=== PATIENT | female | born 1940 | race Caucasian/White ===

== ENCOUNTER → 2018-05-02 14:28 | Outpatient (BNVA) | payer MEDICARE, OTHER, SELFPAY | PROVIDERS: Visit Provider Urology | DX: N39.46 Mixed incontinence (principal) | CPT/HCPCS: 99213 ==

== ENCOUNTER 2018-07-08 10:44 | Outpatient (CLI) | payer MEDICARE, OTHER, SELFPAY ==
--- NOTE | 2018-07-08 10:42 | DI.RAD_ITS ---
SYMPTOM/DIAGNOSIS: R/O DJD LEFT KNEE LEFT KNEE: Two views. Comparison 06/23/14 There are again seen post surgical changes of a left total knee replacement. No evidence of hardware failure is seen. The bones are intact. The soft tissues are unremarkable. IMPRESSION: Stable left TKR.
== END 2018-07-08 11:04 ==
PROVIDERS: PCP Nurse Practitioner; Visit Provider Orthopaedic Surgery
DX: Z96.652 Presence of left artificial knee joint (principal); M79.652 Pain in left thigh
CPT/HCPCS: 99211; 99213; 73560

== ENCOUNTER 2018-07-08 14:03 | Outpatient (CLI) | payer MEDICARE, OTHER, SELFPAY | END 2018-07-08 14:23 | PROVIDERS: PCP Nurse Practitioner; Referring Provider Nurse Practitioner; Visit Provider Orthopaedic Surgery | DX: M79.652 Pain in left thigh (principal); Z96.642 Presence of left artificial hip joint | CPT/HCPCS: 99211 ==

== ENCOUNTER 2018-10-10 10:12 | Outpatient (CLI) | payer MEDICARE, OTHER, SELFPAY ==
[2018-10-10 12:20] LABS: ALT 27 U/L (12-78); AST 21 U/L (15-37); Albumin 3.3 g/dL (3.4-5.0); Alkaline Phosphatase 94 U/L (46-116); Anion Gap 7.5 mmol/L (3-11); BUN 16 mg/dL (7-18); Bilirubin, Total 0.5 mg/dL (0.2-1.0); CO2 32.5 mmol/L (21.0-32.0); CREATININE 0.64 mg/dL (0.55-1.02); Calcium 9.1 mg/dL (8.5-10.1); Chloride 104 mmol/L (98-107); Cholesterol 156 mg/dL (50-200); Glucose 100 mg/dL (70-100); HDL Cholesterol 52 mg/dL (40-60); LDL CHOLESTEROL 89 mg/dL (<100); Potassium 4.1 mmol/L (3.5-5.1); Sodium 144 mmol/L (136-145); Total Protein 6.6 g/dL (6.4-8.2); Triglyceride 74 mg/dL (30-150)
== END 2018-10-10 10:32 ==
PROVIDERS: PCP Nurse Practitioner; Visit Provider Nurse Practitioner
DX: I10 Essential (primary) hypertension (principal); E66.9 Obesity, unspecified
CPT/HCPCS: 36415; 80053; 80061; 83721; 84443

== ENCOUNTER → 2019-05-01 12:57 | Outpatient (BNVA) | payer MEDICARE, OTHER, SELFPAY | PROVIDERS: PCP Nurse Practitioner; Referring Provider Nurse Practitioner; Visit Provider Urology | DX: N39.46 Mixed incontinence (principal) | CPT/HCPCS: 99213 ==

== ENCOUNTER 2019-09-23 03:22 | Outpatient (CLI) | payer MEDICARE, OTHER, SELFPAY ==
[2019-09-23 09:43] LABS: Hemoglobin A1C 5.7 % (3.8-5.6)
[2019-09-23 10:15] LABS: ALT 23 U/L (14-59); AST 17 U/L (15-37); Albumin 3.4 g/dL (3.4-5.0); Alkaline Phosphatase 85 U/L (46-116); Anion Gap 7.7 mmol/L (3-11); BUN 16 mg/dL (7-18); Bilirubin, Total 0.6 mg/dL (0.2-1.0); CO2 30.3 mmol/L (21.0-32.0); CREATININE 0.62 mg/dL (0.55-1.02); Calculated LDL 97 mg/dL (<100); Chloride 104 mmol/L (98-107); Cholesterol 170 mg/dL (<200); Glucose 104 mg/dL (74-106); HDL Cholesterol 48 mg/dL (40-60); Sodium 142 mmol/L (136-145); Total Protein 6.5 g/dL (6.4-8.2); Triglyceride 126 mg/dL (<150)
== END 2019-09-23 03:42 ==
PROVIDERS: PCP Nurse Practitioner; Visit Provider Nurse Practitioner
DX: I10 Essential (primary) hypertension (principal); R73.01 Impaired fasting glucose; E66.9 Obesity, unspecified
CPT/HCPCS: 36415; 80053; 80061; 83036

== ENCOUNTER 2019-09-29 02:02 | Outpatient (CLI) | payer MEDICARE, OTHER, SELFPAY ==
--- NOTE | 2019-09-29 14:45 | DI.US_ITS ---
EXAM: US CAROTID CLINICAL HISTORY: intermittent blurred vision H53.8 VISULA DISTIURBANCE, R07.9 CHEST PAIN TECHNIQUE: Ultrasound performed using standard protocol. COMPARISON: PELVIS TRANSVAG from 11/26/2016 FINDINGS: Bilateral duplex carotid ultrasound was performed. There is bilateral antegrade vertebral flow. The re is mild atheromatous plaque formation in the proximal right internal carotid artery. There is nor mal flow velocity in common, internal, and external carotid arteries bilaterally. IMPRESSION: No evidence of a hemodynamically significant carotid stenosis. DATA REPOSITORY:
== END 2019-09-29 02:22 ==
PROVIDERS: PCP Nurse Practitioner; Visit Provider Nurse Practitioner
DX: H53.8 Other visual disturbances (principal); R07.9 Chest pain, unspecified
CPT/HCPCS: 93880

== ENCOUNTER 2019-10-12 00:45 | Outpatient (CLI) | payer MEDICARE, OTHER, SELFPAY ==
--- NOTE | 2019-10-12 07:10 | DI.CT_ITS ---
EXAM: CT HEAD WO CLINICAL HISTORY: Blurred vision intermittent,h53.8. TECHNIQUE: Imaging Protocol: Axial computed tomography images with coronal and sagittal reformatted images were created and reviewed COMPARISON: No exams were available for comparison FINDINGS: Ventricles and Extra axial spaces: Ventricles and sulci are consistent with the patient's age. Hemorrhage: None. Cerebral parenchyma: There are areas of decreased attenuation in the white matter consistent with sma ll vessel ischemic disease. No acute territorial infarct is present. Midline shift: None. Brainstem/Cerebellum: Normal. Calvarium: Normal. Visualized Paranasal sinuses/Mastoids: There is complete opacification of the right maxillary sinus w ith high density material. This may represent inspissated secretions or atypical infection. There i s mucosal thickening in the left maxillary sinus. There is opacification of a few ethmoid air cells. Mastoid air cells are well pneumatized. IMPRESSION: 1. No acute intracranial process. 2. Nasal sinus disease. High density material is seen in the right maxillary sinus. This may repres ent inspissated secretions or atypical infection. RADIATION DOSE DELIVERED: DATA REPOSITORY: All CT scans at this facility are submitted to the National Radiology Data Registry (NRDR) Dose Index Registry (DIR) with the [employer] (ACR). RADIATION OPTIMIZATION: All CT scans at this facility use at least one of these dose optimization te chniques: automated exposure control; mA and/or kV adjustment per patient size (includes targeted exa ms where dose is matched to clinical indication); or iterative reconstruction.
== END 2019-10-12 01:05 ==
PROVIDERS: PCP Nurse Practitioner; Visit Provider Nurse Practitioner
DX: H53.8 Other visual disturbances (principal); J32.0 Chronic maxillary sinusitis
CPT/HCPCS: 70450

== ENCOUNTER 2019-10-14 01:42 | Outpatient (CLI) | payer MEDICARE, OTHER, SELFPAY ==
--- NOTE | 2019-10-14 13:04 | DI.US_ITS ---
APPROVED REPORT EXAM: Comprehensive 2D, Doppler, and color-flow Echocardiogram Patient Location: Out-Patient Student Accounts Coordinator: Harriett Holder RDCS (AE) Indications: Chest pain Conclusion Left Ventricle : The left ventricle is normal size. Left ventricular systolic function is normal. Th ere is normal left ventricular wall thickness. There is normal LV segmental wall motion. There is gr tim 2 diastolic dysfunction with impaired relaxation. LVEF is 55-59%. Right Ventricle : The right ventricle is normal size. The right ventricular systolic function is norm al. Atria : The left atrium size is normal. The right atrium size is normal. Aortic Valve : The aortic valve is not well visualized. Aortic valve is calcified. The aortic valve gradient is minimally increased (9 mmHg) No aortic regurgitation is seen. Mitral Valve : Moderate mitral annular calcification. Mild mitral regurgitation. No evidence of natasha l valve stenosis. Great Vessels : The IVC was not well visualized. There is no prior echocardiogram available for comparison. Wall motion Left Ventricle The left ventricle is normal size. Left ventricular systolic function is normal. There is normal left ventricular wall thickness. There is normal LV segmental wall motion. There is grade 2 diastolic dys function with impaired filling. LVEF is 55-59%. Right Ventricle The right ventricle is normal size. The right ventricular systolic function is normal. Atria The left atrium size is normal. The right atrium size is normal. Aortic Valve The aortic valve is not well visualized. Aortic valve is calcified. The aortic valve gradient is mini janki increased (9 mmHg) No aortic regurgitation is present. Mitral Valve Moderate mitral annular calcification. No evidence of mitral valve stenosis. Mild mitral regurgitatio n. Tricuspid Valve The tricuspid valve is normal in structure. There is no tricuspid valve stenosis. Trace tricuspid reg urgitation. Pulmonic Valve Pulmonic valve is not well visualized. There is no pulmonic valvular stenosis. Trace pulmonic regurgi tation. Great Vessels The aortic root is normal in size. The ascending aorta size is mildly dilated. The IVC was not well v isualized. Pericardium There is no pericardial effusion. 2D Dimensions IVSD d PLAX 0.93 cm F: 0.6-1.0 LV Vol A2C d MOD 79.1 mL LVPW d PLAX 0.87 cm F: 0.6 - 1.0 LV Vol A4C d MOD 92.3 mL LVID d PLAX 4.49 cm F: 3.8 - 5.2 LA vol/ BSA A2C s A-L 26.6 mL/m2 LVDs 3.30 cm F: 2.2 - 3.5 LA vol/ BSA A4C s A-L 29.9 mL/m2 Ao Root d 2.88 cm F: 2.7 - 3.3 LA Vol/ BSA Biplane s A-L 29.1 mL/m2 RA Area A4C 14.43 cm2 LA Area A4C s MOD 20.43 cm2 RA Vol/ BSA A4C s A-L 18.8 mL/m2 LA Area A2C s MOD 18.70 cm2 Ao Asc Diam d 3.39 cm F: 2.3 - 3.1 LV EF A4C MOD 55.4 % LV EF Teichholz 52.1 % LV EF A2C MOD 59.0 % LVEF (Huddleston's) 57.49 % F: 54 - 74 LV EF Biplane MOD 57.5 % LV Volume 63.96 mL F: 46 - 106 LV Volume Index 30.60 mL/m2 F: 29 - 61 LV Vol Biplane MOD 86.5 mL FS 26.55 % LV Diastology MV E' medial 0.078 (>0.07 m/s) E/A Ratio 1.3 LV E/e MED 17.85 (<14) MV E Vmax 1.40 (0.4-1.3 m/s) MV E' lateral 0.081 (>0.1 m/s) MV A Vmax 1.10 (0.4-1.3 m/s) LV E/e LAT 17.30 (<14) MV E/A Ratio 1.25 MV E/E' medial 17.89 MV E/E' lateral 17.35 Aortic Valve LVOT Area 2.44 cm2 AoV Area Vmax 1.28 cm2 LVOT Vmax 1.08 m/s AoV Area/ BSA (Vmax) 0.61 cm2/m2 LVOT Mean Chaz. 0.70 m/s GLYNN Mean Chaz. 1.20 cm2 LVOT Peak Grad 4.7 mmHg GLYNN Mean Chaz. Index 0.58 cm2/m2 LVOT Mean Grad 2.4 mmHg LVOT VTI 0.257 m LVOT Diam s 1.75 cm (M/F) 1.5-2.5 AoV Vmax 2.07 (0.5-1.3 m/s) Velocity Ratio 0.52 AoV Mean Chaz. 1.43 m/s AoV Peak Grad 17.1 mmHg LVOT SV 62.64 mL AoV Mean Grad 9.2 (<5 mmHg) AoV VTI 0.462 (0.18-0.25 m) AoV Area VTI 1.36 (2.5-4.5 cm2) AoV Area/ BSA (VTI) 0.65 cm/m2 Mitral Valve MV DT 199 (160-240 msec) MV PHT 58 msec MV Area PHT 3.81 cm2 Pulmonary Valve PV Vmax 1.18 (0.5-1.5 m/s) RVOT Peak Gr. 3.79 mmHg PV Peak Grad 5.6 mmHg RVOT Mean Gr. 1.95 mmHg PV Mean Grad 3.5 mmHg RVOT VTI 0.214 m PV VTI 0.213 m RVOT Vmax 0.97 m/s Tricuspid Valve TR Peak Grad 32.9 mmHg TR Vmax 2.87 m/s RA Pressure 3.00 mmHg RVSP (TR) 36.0 mmHg
== END 2019-10-14 02:02 ==
PROVIDERS: PCP Nurse Practitioner; Visit Provider Nurse Practitioner
DX: R07.89 Other chest pain (principal); I50.1 Left ventricular failure, unspecified; I10 Essential (primary) hypertension
CPT/HCPCS: 93306

== ENCOUNTER 2019-10-15 01:04 | Outpatient (CLI) | payer MEDICARE, OTHER, SELFPAY ==
--- NOTE | 2019-10-15 07:05 | DI.NM_ITS ---
APPROVED REPORT Exam: Exercise Treadmill Patient Location: Out-Patient Room/Bed: Stress Nurse: Preethi Guaman RN BMI: 42.50 Baseline Rhythm: Sinus Rhythm Indications: Chest pain. Dyspnea on exertion. Blurred vision. Medical History Medical History: HTN, COPD, Obesity Cardiac Medications: Losartan/HCTZ. Aspirin., Allergies: Sulfa Cardiac Risk Factors: HTN, FHX of CAD, COPD, Asthma Pretest Chest Pain Characteristics: Exertional Chest pain, Non-exertional Chest pain Exercise History: Indeterminate Lung Sounds: Clear to auscultation Heart Sounds: Regular Stress Test Details Test: Pharmacologic stress testing performed using 0.4 mg of regadenoson per 5 mL given IV over 10 s econds. Nuclear Acquisition: Rest Tc-99m/Stress Tc-99m 1 day Rest Isotope: Tc-99m Sestamibi. Dose: 12.0 Date: 10/15/2019 Injection Time: 0845 Stress Isotope: Tc-99m Sestamibi. Dose: 38.0 Date: 10/15/2019 Injection Time: 1045 HR Resting HR Supine: 64 bpm Max Heart Rate (APMHR): 142 bpm Resting HR Standin bpm Target HR (85% APMHR): 120 bpm Max HR Achieved: 130 bpm % of APMHR: 91 Recovery HR: 75 bpm HR response to stress: Normal HR response to stress BP Resting BP Supine: 188/90 mmHg Resting BP Standin/80 mmHg Max BP: 210/95 mmHg Recovery BP: 186/80 mmHg BP response to stress: Normal blood pressure response to stress. Comment: Hyertensive BP's pre-exercise. ECG Resting ECG: Sinus Rhythm Stress ECG: Sinus Tachycardia ST Change: No significant ST segment changes Arrhythmia: None Recovery ECG: Sinus Rhythm Recovery Arrhythmia: None Clinical Reason for Termination: Fatigue Stress Symptoms: General Fatigue Exercise duration: 3 min0 sec Highest Stage Reached: Stage 1: 1.7 mph at 10% grade. Exercise capacity: 4.64 METs Functional Capacity: Mildly deminished capacity Scale: Sedentary Angina Score: None Stress ECG Conclusion 1. Patient exercised for 3 minutes (5 METS). 2. Patient had no symptoms suggestive of ischemia. Patient had a hypertensive response to exercise. 3. There is no evidence of ischemia on the ECG portion of the exam. Protocol Used: Haroon Protocol Stress Test Summary STAGE Time (mins) Speed (mph) Grade (%) HR BP SYMPTOMS METS Supine 64 188/80 Standing 74 180/80 1 3 1.7 10 129 190/86 4.6 1 min recovery 105 210/95 3 min recovery 78 192/80 6 min recovery 75 186/80 MPI Conclusion Patient's ejection fraction was 68%. There were no wall motion abnormalities. There was no evidence of ischemia on the imaging portion of the exam. This represents a normal SPECT stress test.
== END 2019-10-15 01:24 ==
PROVIDERS: PCP Nurse Practitioner; Visit Provider Nurse Practitioner
DX: R07.89 Other chest pain (principal); R06.09 Other forms of dyspnea; I10 Essential (primary) hypertension; Z82.49 Family history of ischemic heart disease and other diseases of the circulatory system; H53.8 Other visual disturbances; J44.9 Chronic obstructive pulmonary disease, unspecified
CPT/HCPCS: 78452; 93016; 93018; 93017

== ENCOUNTER 2019-10-19 12:51 | Outpatient (CLI) | payer MEDICARE, OTHER, SELFPAY | END 2019-10-19 13:11 | PROVIDERS: PCP Nurse Practitioner; Referring Provider Nurse Practitioner; Visit Provider Student in an Organized Health Care Education/Training Program | DX: M65.342 Trigger finger, left ring finger (principal); M18.12 Unilateral primary osteoarthritis of first carpometacarpal joint, left hand | CPT/HCPCS: 20550; 99214; J1030 ==

== ENCOUNTER 2020-04-08 08:11 | Day surgery (SDC) | payer MEDICARE, OTHER, SELFPAY ==
[2020-04-08 08:25] VITALS: BP 151/80; PULSE 77; RESP 18; TEMP 36.5; O2SAT 96
[2020-04-08] MEDS: Tetracaine 0.5% 4 ML BTL OS (09:16)
[2020-04-08] MEDS: Balanced Salt Soln.-PLUS 500 ML BAG (09:18)
[2020-04-08] MEDS: Lidocaine 1% Pres-Free 5 ML VIAL (09:19)
[2020-04-08] MEDS: Moxifloxacin-PF 1 MG/ML VIAL (09:20)
[2020-04-08] MEDS: Lidocaine 2% Jelly 6 ML SYR (09:20)
[2020-04-08] MEDS: Povidone-Iodine Ophth 30 ML BTL (09:21)
--- NOTE | 2020-04-08 09:34 | W.PM.DSUDISC ---
Discharge Plan Disposition Patient Disposition: HOME Condition: Good Discharge Details Attending Provider: Kwame Bourne Primary Care Provider: Stella Angeles Home Meds and New Rx's Prescriptions: No Action losartan-hydrochlorothiazide 50-12.5 mg tablet 1 tab PO DAILY Qty: 90 RF: 1 Myrbetriq 50 mg tablet extended release 24 hr 50 mg PO DAILY Qty: 90 RF: 4 albuterol sulfate 90 mcg/actuation HFA aerosol inhaler 2 puff IH QID Qty: 18 RF: 12 aspirin [Aspir-81] 81 MG tablet,delayed release (DR/EC) 81 mg PO DAILY Qty: 1 RF: 0 Estroven Nighttime 1,000 UNIT tablet 1 tab PO DAILY RF: 0 diphenhydramine HCl 25 mg Tablet 50 mg PO HS RF: 0 Women's 50 Plus Multivitamin 400 mcg-500 mg calcium-20 mcg Tablet 1 tab PO RF: 0 Discharge Instructions Stand Alone Forms: Post-op Topical Cataract, Saúl Moore (DSU) Discharge Orders Discharge Orders: Discharge Order (Routine); Ordered 04/08/20 Ordered By: Kwame Bourne DS: Diagnosis Discharge Diagnosis (1) Cortical cataract of left eye: Status: Resolved (2) Nuclear sclerotic cataract of left eye: Status: Resolved
--- NOTE | 2020-04-08 09:34 | W.PM.OP ---
Date of service: 04/08/20 Time of Service: 09:35 Operative Note Operative Note DATE OF PROCEDURE: 04/08/20 PRE-OP DIAGNOSIS: Nuclear/cortical cataract,left eye POST-OP DIAGNOSIS: same PROCEDURE: Cataract extraction using phacoemulsification with intraocular lens implant, left eye SURGEON: Kwame Bourne ANESTHESIA: MAC and local (sub-tenon's anesthetic infiltration) PATHOLOGY: none sent COMPLICATIONS: None Patient was transported to: same day Patient's condition: stable Implants: [employer] / [employer] Tecnis ZCB00 Indications: Progressive decreased vision due to cataract, left eye Procedure Description: CATARACT SURGERY OPERATIVE REPORT PREOPERATIVE DIAGNOSIS: Nuclear/cortical cataract, left eye POSTOPERATIVE DIAGNOSIS: Same OPERATION: Cataract extraction using phacoemulsification with posterior chamber intraocular lens implant, left eye. IOL: IOL Barrel Turner/Model: J&J Vision / ANGELES Tecnis ZCB00 IOL Power: + 21.0 diopters IOL Serial Number: [id number] Optic Diameter: 6.0mm Haptic/Overall Diameter: 13.0mm PHACO INFO: [place] Freebaseurion Vision System with OZil and Active Fluidics Cumulative Dispersed Energy (CDE): 11.89 seconds SURGEON: Kwame Bourne MD, TEO ANESTHESIA: Monitored Anesthesia Care (MAC), with local sub-tenon's anesthetic infiltration COMPLICATIONS: None SPECIMENS: None INDICATIONS FOR PROCEDURE: Patient is a 80-year-old lady with history of diminished visual acuity in her left eye female. Cortical cataract. The option of surgery was to proceed. PROCEDURE: The correct surgical eye was identified and marked as the left eye and the pupil was dilated in the preoperative area using mydriatics and cycloplegics. The dilated pupil size was 7.0 mm. Oral sedation was administered in the form of an Imprimis MKO Melt (midazolam 3mg/ketamine 25mg/ondansetron 2mg). The patient was brought to the operating room where cardiopulmonary monitoring was instituted and surgical time-out was performed, confirming the correct operative eye and IOL power. Topical anesthesia was administered and ophthalmic povidone-iodine 5% was instilled into the conjunctival fornices. Lidocaine gel was applied to the cornea and the ten-ocular area was prepped with Betadine 10% solution and draped in the usual sterile fashion for intraocular surgery, including an aperture drape. A Tegaderm transparent film dressing was cut in half and used to cover the lashes and lid margins. Care was taken to sequester the lashes and lid margins under the Tegaderm dressing. A lid speculum was placed between the lids of the operative eye and the Hector-Neetu operating microscope was maneuvered into position. Anni scissors were then used to make a conjunctival buttonhole approximately 6mm posterior to the limbus in the inferonasal quadrant. Blunt dissection was carried out to expose bare sclera, and a blunt-tipped sub-tenon?s anesthesia cannula was introduced and passed posteriorly along the globe where non-preserved plain lidocaine was injected into posterior sub-Tenon?s space. A sideport knife was used to make a paracentesis port superior/superiortemporally. Intraocular phenylephrine/lidocaine was injected into the anterior chamber. The anterior chamber was then filled with Healon Pro. A 2.4mm keratome knife was used to create a half-thickness groove at the limbus and then to construct a three-plane near-clear corneal tunnel extending 2.0mm into clear cornea in the temporal position. . A flap was raised on the anterior capsule and capsulorhexis forceps were used to complete a continuous curvilinear capsulorhexis of 5.0 mm. Balanced salt solution was then used to perform cortical cleaving hydrodissection and nuclear hydrodelineation until the lens could be freely rotated within the capsular bag. The lens nucleus was then disassembled and removed within the capsular bag and iris plane using phacoemulsification. Residual cortical material was removed using the 45-degree angled silicone I/A tip with 0.3mm port. The posterior capsule was carefully polished to remove as much residual lens epithelial cells as safely possible. The capsular bag was then inflated and the anterior chamber deepened with viscoelastic. The lens implant described above was inserted into the capsular bag using the ANGELES [place] Injector. A Kuglen hook was used to dial the IOL into position. Residual viscoelastic was then removed first from posterior to the IOL, then from the anterior chamber using the I/A handpiece. The lens implant was noted to center nicely within the capsular bag. The incisions were stromally hydrated, and the anterior chamber was reformed using BSS. Then 0.5cc of moxifloxacin 1.0mg/ml were injected into the capsular bag and anterior chamber. The incisions were checked with a Weck spear and found to be secure. Several drops of ophthalmic povidone-iodine 5% were then applied to the eye followed by two drops of Imprimis combination prednisolone/moxifloxacin/nepafenac solution. The drapes were removed and a clear plastic protective eye shield was placed over the eye. The patient was then returned to Same Day Surgery in stable condition.
[2020-04-08 10:00] VITALS: BP 142/74; PULSE 66; RESP 16; TEMP 36.2; O2SAT 96
== END 2020-04-08 10:05 | disposition home or self-care (01) ==
PROVIDERS: PCP Nurse Practitioner; Visit Provider Ophthalmology
PROC: (CPT 66984; principal; 2020-04-08 10:30)
DX: H25.012 Cortical age-related cataract, left eye (principal); H25.12 Age-related nuclear cataract, left eye
CPT/HCPCS: 66984; V2632

== ENCOUNTER 2020-04-22 06:52 | Day surgery (SDC) | payer MEDICARE, OTHER, SELFPAY ==
[2020-04-22] MEDS: Tropicam./Phenyleph. (1/2.5%) 5 ML BTL OD ×3 (07:17→07:28)
[2020-04-22] MEDS: Tetracaine 0.5% 4 ML BTL OD (08:43)
[2020-04-22] MEDS: Lidocaine 2% Jelly 6 ML SYR (08:43)
[2020-04-22] MEDS: Povidone-Iodine Ophth 30 ML BTL (08:45)
[2020-04-22] MEDS: Lidocaine 1% Pres-Free 5 ML VIAL (08:46)
[2020-04-22] MEDS: Balanced Salt Soln.-PLUS 500 ML BAG (08:52)
[2020-04-22] MEDS: Moxifloxacin-PF 1 MG/ML VIAL (08:55)
--- NOTE | 2020-04-22 09:17 | W.PM.DSUDISC ---
Discharge Plan Disposition Patient Disposition: HOME Condition: Good Discharge Details Attending Provider: Kwame Bourne Primary Care Provider: Stella Angeles Home Meds and New Rx's Prescriptions: No Action losartan-hydrochlorothiazide 50-12.5 mg tablet 1 tab PO DAILY Qty: 90 RF: 1 Myrbetriq 50 mg tablet extended release 24 hr 50 mg PO DAILY Qty: 90 RF: 4 albuterol sulfate 90 mcg/actuation HFA aerosol inhaler 2 puff IH QID Qty: 18 RF: 12 aspirin [Aspir-81] 81 MG tablet,delayed release (DR/EC) 81 mg PO DAILY Qty: 1 RF: 0 Estroven Nighttime 1,000 UNIT tablet 1 tab PO DAILY RF: 0 diphenhydramine HCl 25 mg Tablet 50 mg PO HS RF: 0 Women's 50 Plus Multivitamin 400 mcg-500 mg calcium-20 mcg Tablet 1 tab PO DAILY RF: 0 Discharge Instructions Stand Alone Forms: Post-op Topical Cataract, Saúl Moore (DSU) Discharge Orders Discharge Orders: Discharge Order (Routine); Ordered 04/22/20 Ordered By: Kwame Bourne DS: Diagnosis Discharge Diagnosis (1) Nuclear sclerotic cataract of right eye: Status: Resolved
--- NOTE | 2020-04-22 09:18 | W.PM.OP ---
Date of service: 04/22/20 Time of Service: :18 Operative Note Operative Note DATE OF PROCEDURE: 04/22/20 PRE-OP DIAGNOSIS: Nuclear cataract, right eye POST-OP DIAGNOSIS: same PROCEDURE: Cataract extraction using phacoemulsification with intraocular lens implant, right eye SURGEON: Kwame Bourne ANESTHESIA: MAC and local (sub-tenon's anesthetic infiltration) ESTIMATED BLOOD LOSS: 0 PATHOLOGY: none sent COMPLICATIONS: None Patient was transported to: same day Patient's condition: stable Implants: [employer] / [employer] Tecnis ZCB00 intraocular lens Indications: Progressive decreased vision due to cataract, right eye Procedure Description: CATARACT SURGERY OPERATIVE REPORT PREOPERATIVE DIAGNOSIS: Nuclear cataract, right eye POSTOPERATIVE DIAGNOSIS: Same OPERATION: Cataract extraction using phacoemulsification with posterior chamber intraocular lens implant, right eye. IOL: IOL Inspector Floor Sub Assembly/Model: J&J Vision / ANGELES Tecnis ZCB00 IOL Power: + 20.50 diopters IOL Serial Number: [id number] Optic Diameter: 6.0mm Haptic/Overall Diameter: 13.0mm PHACO INFO: [place] [employer]urion Vision System with OZil and Active Fluidics Cumulative Dispersed Energy (CDE): 12.12 seconds SURGEON: Kwame Bourne MD, TEO ANESTHESIA: Monitored Anesthesia Care (MAC), with local sub-tenon's anesthetic infiltration COMPLICATIONS: None SPECIMENS: None INDICATIONS FOR PROCEDURE: The patient is a 80-year-old lady with history of diminished visual acuity in both eyes secondary to the development of bilateral nuclear cataract. She has already undergone cataract surgery in her left eye and is doing well postoperatively. She now presents for cataract surgery in the right eye. PROCEDURE: The correct surgical eye was identified and marked as the right eye and the pupil was dilated in the preoperative area using mydriatics and cycloplegics. The dilated pupil size was 7.5 mm. Oral sedation was administered in the form of an Imprimis MKO Melt (midazolam 3mg/ketamine 25mg/ondansetron 2mg). The patient was brought to the operating room where cardiopulmonary monitoring was instituted and surgical time-out was performed, confirming the correct operative eye and IOL power. Topical anesthesia was administered and ophthalmic povidone-iodine 5% was instilled into the conjunctival fornices. Lidocaine gel was applied to the cornea and the ten-ocular area was prepped with Betadine 10% solution and draped in the usual sterile fashion for intraocular surgery, including an aperture drape. A Tegaderm transparent film dressing was cut in half and used to cover the lashes and lid margins. Care was taken to sequester the lashes and lid margins under the Tegaderm dressing. A lid speculum was placed between the lids of the operative eye and the Hector-Neetu operating microscope was maneuvered into position. Anni scissors were then used to make a conjunctival buttonhole approximately 6mm posterior to the limbus in the inferonasal quadrant. Blunt dissection was carried out to expose bare sclera, and a blunt-tipped sub-tenon?s anesthesia cannula was introduced and passed posteriorly along the globe where non-preserved plain lidocaine was injected into posterior sub-Tenon?s space. A sideport knife was used to make a paracentesis port inferiortemporally. Intraocular phenylephrine/lidocaine was injected into the anterior chamber. The anterior chamber was then filled with Healon Pro. A 2.4mm keratome knife was used to create a half-thickness groove at the limbus and then to construct a three-plane near-clear corneal tunnel extending 2.0mm into clear cornea in the superiortemporal position. . A flap was raised on the anterior capsule and capsulorhexis forceps were used to complete a continuous curvilinear capsulorhexis of 5.0 mm. Balanced salt solution was then used to perform cortical cleaving hydrodissection and nuclear hydrodelineation until the lens could be freely rotated within the capsular bag. The lens nucleus was then disassembled and removed within the capsular bag and iris plane using phacoemulsification. Residual cortical material was removed using the I/A handpiece. The posterior capsule was carefully polished to remove as much residual lens epithelial cells as safely possible. The capsular bag was then inflated and the anterior chamber deepened with viscoelastic. The lens implant described above was inserted into the capsular bag using the ANGELES [place] Injector. A Kuglen hook was used to dial the IOL into position. Residual viscoelastic was then removed first from posterior to the IOL, then from the anterior chamber using the I/A handpiece. The lens implant was noted to center nicely within the capsular bag. The incisions were stromally hydrated, and the anterior chamber was reformed using BSS. Then 0.5cc of moxifloxacin 1.0mg/ml were injected into the capsular bag and anterior chamber. The incisions were checked with a Weck spear and found to be secure. Several drops of ophthalmic povidone-iodine 5% were then applied to the eye followed by two drops of Imprimis combination prednisolone/moxifloxacin/nepafenac solution. The drapes were removed and a clear plastic protective eye shield was placed over the eye. The patient was then returned to Same Day Surgery in stable condition.
[2020-04-22 09:45] VITALS: BP 144/46; PULSE 66; RESP 16; TEMP 36.2; O2SAT 97
== END 2020-04-22 09:50 | disposition home or self-care (01) ==
PROVIDERS: PCP Nurse Practitioner; Visit Provider Ophthalmology
PROC: (CPT 66984; principal; 2020-04-22 08:30)
DX: H25.11 Age-related nuclear cataract, right eye (principal); K21.9 Gastro-esophageal reflux disease without esophagitis; E66.9 Obesity, unspecified
CPT/HCPCS: 66984; V2632

== ENCOUNTER → 2020-05-31 15:24 | Outpatient (BNVA) | payer MEDICARE, OTHER, SELFPAY | PROVIDERS: PCP Nurse Practitioner; Referring Provider Nurse Practitioner; Visit Provider Urology | DX: N39.46 Mixed incontinence (principal) | CPT/HCPCS: 99213 ==

== ENCOUNTER → 2020-08-24 14:22 | Outpatient (BNVA) | payer MEDICARE, OTHER, SELFPAY | PROVIDERS: PCP Nurse Practitioner; Referring Provider Nurse Practitioner; Visit Provider Nurse Practitioner Gerontology | DX: N39.46 Mixed incontinence (principal) | CPT/HCPCS: 81003; 99214 ==

== ENCOUNTER → 2020-11-22 15:24 | Outpatient (BNVA) | payer MEDICARE, OTHER, SELFPAY | PROVIDERS: PCP Nurse Practitioner; Referring Provider Nurse Practitioner; Visit Provider Nurse Practitioner Gerontology | DX: N39.46 Mixed incontinence (principal) | CPT/HCPCS: 99214 ==

== ENCOUNTER 2020-12-05 17:02 | Outpatient (REF) | payer MEDICARE, OTHER, SELFPAY ==
--- NOTE | 2020-12-05 16:06 | SKI_PTH ---
PATIENT: Kalyn Fish LOC: [facility] U#:[id number] AGE/SX: 80/F ROOM: RE12/05/[address]: Matthew Obrien DO : 1940 BED: DIS: 12/05/2020 SPEC #: [id number] RECD: 12/05/20 18:31 STATUS: THA REEmir #: [id number] INDIRA: 12/05/20 16:[address]: Matthew Obrien DEPT: Surgical Specimen RECD BY: Annabelle Arias ENTERED: 12/05/20 18:31 SP TYPE: TYLER CASSIDY DR: Stella Angeles APRN Tissues: 1 - SKIN BIOPSY(SHAVE/PUNCH) Procedures: SKIN LEVEL 4 Comments: [id number]
== END 2020-12-05 17:03 | disposition home or self-care (01) ==
LOC: LBN 17:02
PROVIDERS: PCP Nurse Practitioner; Visit Provider Otolaryngology Otolaryngology/Facial Plastic Surgery
DX: L90.5 Scar conditions and fibrosis of skin (principal); Z85.828 Personal history of other malignant neoplasm of skin
CPT/HCPCS: 88305

== ENCOUNTER → 2021-05-23 15:14 | Outpatient (BNVA) | payer MEDICARE, OTHER, SELFPAY | PROVIDERS: PCP Nurse Practitioner; Referring Provider Nurse Practitioner; Visit Provider Nurse Practitioner Gerontology | DX: R69 Illness, unspecified (principal) ==

== ENCOUNTER → 2021-06-01 10:34 | Outpatient (BNVA) | payer MEDICARE, OTHER, SELFPAY | PROVIDERS: PCP Nurse Practitioner; Referring Provider Nurse Practitioner; Visit Provider Nurse Practitioner Gerontology | DX: N39.46 Mixed incontinence (principal); Z79.899 Other long term (current) drug therapy | CPT/HCPCS: 99213 ==

== ENCOUNTER 2021-08-25 01:47 | Outpatient (CLI) | payer MEDICARE, OTHER, SELFPAY ==
[2021-08-25 09:44] LABS: HCT 43.2 % (36.0-46.0); HGB 13.6 g/dL (11.2-15.7); MCH 29.3 pg (27.0-33.0); MCHC 31.5 % (32.0-36.0); MCV 93.1 fL (80-95); MPV 9.6 fL (8.0-11.0); Platelet Count 275 10^3/uL (130-400); RBC 4.64 10^6/uL (3.93-5.22); RDW 12.2 % (11.7-14.6)
[2021-08-25 10:39] LABS: ALT 21 U/L (14-59); AST 13 U/L (15-37); Albumin 3.5 g/dL (3.4-5.0); Alkaline Phosphatase 107 U/L (46-116); Anion Gap 7.7 mmol/L (3-11); BUN 14 mg/dL (7-18); Bilirubin, Total 0.5 mg/dL (0.2-1.0); CO2 31.3 mmol/L (21.0-32.0); CREATININE 0.7 mg/dL (0.55-1.02); Calculated LDL 111 mg/dL (<100); Chloride 102 mmol/L (98-107); Cholesterol 187 mg/dL (<200); Glucose 105 mg/dL (74-106); HDL Cholesterol 54 mg/dL (40-60); Potassium 3.9 mmol/L (3.5-5.1); Sodium 141 mmol/L (136-145); Triglyceride 114 mg/dL (<150)
== END 2021-08-25 01:48 | disposition home or self-care (01) ==
LOC: LBO 01:47
PROVIDERS: PCP Nurse Practitioner; Visit Provider Nurse Practitioner
DX: I10 Essential (primary) hypertension (principal); E66.8 Other obesity
CPT/HCPCS: 36415; 80053; 80061; 85027

== ENCOUNTER 2022-02-07 17:24 | Emergency (ER) | payer MEDICARE, SELFPAY ==
[2022-02-07 17:26] VITALS: BP 169/56; PULSE 79; RESP 18; TEMP 36.1; O2SAT 96
--- NOTE | 2022-02-07 17:45 | DI.RAD_ITS ---
Exam(s) XR FOOT RT COMPLETE EXAM: XR FOOT RT COMPLETE CLINICAL HISTORY: right lateral foot pain. TECHNIQUE: 2D digital imaging was performed. COMPARISON: No exams were available for comparison FINDINGS: 3 views There is a nondisplaced oblique fracture at the base of 5th metatarsal. No other metatarsal fracture s identified. Lisfranc joint unremarkable. Prominent inferior calcaneal spur noted. IMPRESSION: Nondisplaced oblique fracture in the proximal aspect of the 5th metatarsal. DATA REPOSITORY: RADIATION DOSE DELIVERED:
--- NOTE | 2022-02-07 18:47 | DI.VRAD_ITS ---
PROCEDURE INFORMATION: Exam: XR Right Foot Exam date and time: 02/07/2022 6:05 PM Age: 81 years old Clinical indication: Injury or trauma; Fall; Fracture, traumatic; Closed fracture; Foot; Right TECHNIQUE: Imaging protocol: Radiologic exam of the Right foot. Views: 3 or more views. COMPARISON: No relevant prior studies available. FINDINGS: Bones/joints: Nondisplaced oblique fracture of the base of the 5th metatarsal. Osteopenia. Large plantar calcaneal spur. Degenerative change at dorsal surface of talonavicular joint. Very small dorsal calcaneal spur. Normal variant os trigonum. Assessment of calcaneal pitch is limited by nonweightbearing technique however, pes planus is likely. No aggressive bone destruction. Soft tissues: Normal. IMPRESSION: Nondisplaced oblique fracture of the base of the 5th metatarsal. Dictated and Authenticated by: Flavia Fernando MD. Ordering:BRIANNA Alanis MD
--- NOTE | 2022-02-07 23:13 | W.ED.GENAD ---
Discharge Plan Disposition Patient Disposition: HOME Condition: Stable Discharge Details Clinical Impression: Foot fracture Primary Care Provider: Stella Angeles ED Provider: Annabelle Ortiz Home Meds and New Rx's Prescriptions: Continued Myrbetriq 50 mg tablet extended release 24 hr 50 mg PO DAILY Qty: 90 4RF losartan-hydrochlorothiazide 50-12.5 mg tablet 1 tab PO DAILY Qty: 90 3RF aspirin [Aspir-81] 81 MG tablet,delayed release (DR/EC) 81 mg PO DAILY Qty: 1 diphenhydramine HCl 25 mg Tablet 50 mg PO HS Discharge Instructions Additional Instructions: Take Tylenol as needed for pain You may take half a tablet of oxycodone to 1 full tablet as needed for discomfort This medication is addictive and can make you constipated, use caution while taking it Follow-up with orthopedist, I am listing the orthopedics below Use your boot when ambulating Return earlier should you have new or worsening complaints Elevate your leg and apply ice is much as possible Referrals: Hermelindo Khan MD [ [facility] STAFF PHYSICIAN] - Discharge Data Discharge Date/Time-TO BE ENTERED AT DEPARTURE: 02/07/22 18:50 Medical Decision Making Patient with fifth metatarsal fracture Placed in boot and referred to orthopedics Ambulatory with antalgic although steady gait Medical Records Medical records reviewed: Yes I reviewed the patient's medical records. Lab Data Lab results reviewed: Yes I reviewed the patient's lab results. HPI General Date/Time Provider Initiated Documentation: 02/07/22 17:45. HPI Narrative: This 81-year-old female presents status post fall with injury to right foot. Patient states event occurred just prior to arrival. She denies any additional injuries. Her pain is exacerbated with ambulation. She denies anticoagulation. Denies any sensation change. Denies ankle or knee pain. Denies head injury. Related Data Home Medications Medication Instructions Recorded Confirmed aspirin 81 mg tablet,delayed 81 mg PO DAILY #1 tab-cap 08/27/14 02/07/22 release (Aspir-) diphenhydramine HCl 25 mg tablet 50 mg PO HS 04/06/20 02/07/22 mirabegron 50 mg tablet,extended 50 mg PO DAILY #90 tab-caps 06/01/21 02/07/22 release 24 hr (Myrbetriq) losartan 50 mg-hydrochlorothiazide 1 tab PO DAILY #90 tabs 08/16/21 02/07/22 12.5 mg tablet Previous Rx's Medication Instructions Recorded mirabegron 50 mg tablet,extended 50 mg PO DAILY #90 tab-caps 06/01/21 release 24 hr (Myrbetriq) losartan 50 mg-hydrochlorothiazide 1 tab PO DAILY #90 tabs 08/16/21 12.5 mg tablet Allergies Allergy/AdvReac Type Severity Reaction Status Date / Time oxybutynin AdvReac dry mouth Verified 02/07/22 17:35 propoxyphene HCl AdvReac gi upset Verified 02/07/22 17:35 [From Darvon] Sulfa (Sulfonamide AdvReac gi upset Verified 02/07/22 17:35 Antibiotics) General Stated Complaint: Orthopedic TONEY: 4 Review of Systems All systems reviewed & are unremarkable except as noted in HPI and below PFSH All Active Problems (Updated 02/07/22 @ 18:28 by LUKASZ Post) Foot fracture (Acute) Dysfunction of right eustachian tube (Acute) Impacted cerumen of both ears (Acute) Osteoarthritis of carpometacarpal (CMC) joint of left thumb (Acute) Trigger finger, left ring finger (Acute) Injected: 10/19/2019 Chest pain (Acute) MCINTOSH (dyspnea on exertion) (Acute) Blurred vision, left eye (Acute) Cough (Acute) Insomnia (Acute) Osteopenia (Acute 06/29/13) Actinic keratoses (Acute) Seborrheic keratoses (Chronic) Neoplasm of unspecified behavior of bone, soft tissue, and skin (Acute) Left judaism ENT/Camille Urinary incontinence, mixed (Acute 01/29/17) 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 mostly on right side b. 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 [place] of state [place] (fortyfive) years ago Osteoarthritis of right knee (Acute 01/05/15) Medical History (Updated 02/07/22 @ 18:28 by LUKASZ Post) Diffuse cystic mastopathy (01/17/12) History of squamous cell carcinoma Wrist pain, left (12/06/15) Surgical History (Updated 04/22/20 @ 09:17 by Kwame Bourne MD) Foot fracture, left (Unknown) H/O surgical procedure a. Thymectomy b. Appendectomy c. Open cholecystectomy d. Tonsillectomy e. Hysterectomy f. Repair of a Lisfrank fx, left foot g. Colonoscopy History of hysterectomy (Unknown) History of total knee arthroplasty (06/23/14) Left Hx of appendectomy (Unknown) Hx of cholecystectomy (Unknown) Hx of tonsillectomy (Unknown) R total knee arthroplasty (01/05/15) Dreisbach Shave excision rgt forehead (02/20/16) Pathology: -Squamous cell carcinoma in situ -Extensive follicular involvement present -Squamous cell carcinoma in situ present at peripheral and deep tissue edges. Family History Mother Stroke Father Heart disease heart failure Pneumonia Diabetes Sister Personal history of malignant neoplasm ovarian and colon ca Brother Personal history of malignant neoplasm prostate and colon Essential hypertension Son Diabetes Essential hypertension Social History (Updated 03/30/20 @ 09:37 by Deborah Simpson LPN) Smoking/Tobacco Use Status: Never Second Hand Exposure: Yes Smoking risk assessment performed?: Yes Alcohol Intake: current Alcohol Intake frequency: holidays/special occasions only Alcohol type: hard liquor Drug use: Never Substance use type: does not use Adopted: No Household members: none Housing: house Number of Children: 2 number of grandchildren: 6 current occupation: retried from [employer] Pets and animals: No What is your relationship status?: Panel score (0-1 are the most socially isolated patients): 0 What type of physical activity do you participate in: none Duration: 15-30 minutes/day Frequency: daily Seatbelt use: always Working smoke detector in home: Yes Fire extinguisher in home: Yes Carbon monox detector in home: Yes Do you feel safe at home: Yes Additional Social history: lives above children. takes care of an elderly relative, up and down stairs. plays [employer] 2x week. Exam Const General: cooperative, comfortable and no acute distress HENMT Head: normal to inspection Eyes Pupils: PERRL Resp Effort & Inspection: normal respiratory effort Cardio Rate: regular rate Neuro General: patient alert and patient oriented x3 Extrem Ankle/foot/toe images: 1. tenderness, ecchymosis, n/v intact no ankle tenderness or knee tenderness 2. Course Vital Signs Vital signs: Vital Signs Temperature 36.1 C L 02/07/22 17:26 Pulse 79 02/07/22 17:26 Respiratory Rate 18 02/07/22 17:26 Blood Pressure 169/56 H 02/07/22 17:26 Pulse Oximetry 96 02/07/22 17:26 Temperature 36.1 C L 02/07/22 17:26 Temperature Source Temporal Artery Scan 02/07/22 17:26 Pulse 79 02/07/22 17:26 Respiratory Rate 18 02/07/22 17:26 Respiratory Effort Non-Labored 02/07/22 17:32 Blood Pressure 169/56 H 02/07/22 17:26 Blood Pressure Position Sitting 02/07/22 17:26 Pulse Oximetry 96 02/07/22 17:26 Oxygen Delivery Method Room Air 02/07/22 17:26 Oxygen Flow Rate 0 02/07/22 17:26 Pain Level 8 02/07/22 17:32
== END 2022-02-07 18:50 | disposition home or self-care (01) ==
PROVIDERS: Emergency Provider Physician Assistant; PCP Nurse Practitioner
DX: S92.351A Displaced fracture of fifth metatarsal bone, right foot, initial encounter for closed fracture (principal); W18.39XA Other fall on same level, initial encounter
CPT/HCPCS: 29515; 99283; 73630

== ENCOUNTER → 2022-06-13 08:27 | Outpatient (BNVA) | payer MEDICARE, OTHER, SELFPAY | PROVIDERS: PCP Nurse Practitioner; Referring Provider Nurse Practitioner; Visit Provider Nurse Practitioner Gerontology | DX: R39.89 Other symptoms and signs involving the genitourinary system (principal) | CPT/HCPCS: 51798; 99214 ==

== ENCOUNTER → 2022-06-25 13:55 | Outpatient (BNVA) | payer MEDICARE, OTHER, SELFPAY | PROVIDERS: PCP Nurse Practitioner; Referring Provider Nurse Practitioner; Visit Provider Student in an Organized Health Care Education/Training Program | DX: M76.71 Peroneal tendinitis, right leg (principal); S92.351A Displaced fracture of fifth metatarsal bone, right foot, initial encounter for closed fracture; X58.XXXA Exposure to other specified factors, initial encounter | CPT/HCPCS: 99213 ==

== ENCOUNTER 2022-08-29 02:04 | Outpatient (CLI) | payer MEDICARE, SELFPAY ==
[2022-08-29 10:14] LABS: ALT 16 U/L (14-59); AST 13 U/L (15-37); Albumin 3.6 g/dL (3.4-5.0); Alkaline Phosphatase 90 U/L (46-116); BUN 16 mg/dL (7-18); Bilirubin, Total 0.7 mg/dL (0.2-1.0); CREATININE 0.7 mg/dL (0.55-1.02); Calcium 9.6 mg/dL (8.5-10.1); Calculated LDL 106 mg/dL (<100); Chloride 104 mmol/L (98-107); Cholesterol 191 mg/dL (<200); Estimated GFR 86.83 (mL/min/1.73m2); Glucose 99 mg/dL (74-106); HDL Cholesterol 56 mg/dL (40-60); Potassium 3.9 mmol/L (3.5-5.1); Sodium 141 mmol/L (136-145); Total Protein 7.4 g/dL (6.4-8.2); Triglyceride 146 mg/dL (<150)
[2022-08-29 10:46] LABS: Anion Gap 7.9 mmol/L (3-11); CO2 29.1 mmol/L (21.0-32.0)
== END 2022-08-29 02:05 | disposition home or self-care (01) ==
LOC: LBO 02:05
PROVIDERS: PCP Nurse Practitioner; Visit Provider Nurse Practitioner
DX: I10 Essential (primary) hypertension (principal); E66.8 Other obesity
CPT/HCPCS: 36415; 80053; 80061

== ENCOUNTER → 2022-11-13 12:23 | Outpatient (BNVA) | payer MEDICARE, SELFPAY | PROVIDERS: PCP Nurse Practitioner; Referring Provider Nurse Practitioner; Visit Provider Nurse Practitioner Gerontology | DX: R82.998 Other abnormal findings in urine (principal) | CPT/HCPCS: 51798; 81003; 87077; 99213; 87086; 87186 ==

== ENCOUNTER 2022-11-13 12:51 | Outpatient (RCR) | payer MEDICARE, SELFPAY | END 2022-12-02 23:59 | disposition home or self-care (01) | LOC: LBN 12:51 | PROVIDERS: PCP Nurse Practitioner; Visit Provider Nurse Practitioner Gerontology | DX: N39.0 Urinary tract infection, site not specified (principal) | CPT/HCPCS: 87077; 87086; 87186 ==

== ENCOUNTER 2023-02-20 17:58 | Outpatient (REF) | payer MEDICARE, SELFPAY ==
[2023-02-20 21:12] LABS: Bacteria Many HPF (Negative); C & S Indicated? No/Sq. Contamination; Casts Negative LPF (Negative); Crystals Negative HPF (Negative); Epithelial Cells Many HPF (Negative); Mucus Negative (Negative); RBC 0-2 HPF (0-2); WBC 20-50 HPF (0-5)
== END 2023-02-20 17:59 | disposition home or self-care (01) ==
LOC: NCHCN 17:58
PROVIDERS: PCP Nurse Practitioner; Visit Provider Physician Assistant Medical
DX: N39.0 Urinary tract infection, site not specified (principal)
CPT/HCPCS: 81015; 87086

== ENCOUNTER 2023-03-19 19:19 | Outpatient (REF) | payer MEDICARE, SELFPAY | END 2023-03-19 19:20 | disposition home or self-care (01) | LOC: LBN 19:19 | PROVIDERS: PCP Nurse Practitioner; Visit Provider Nurse Practitioner | DX: R30.0 Dysuria (principal) | CPT/HCPCS: 87077; 87086; 87186 ==

== ENCOUNTER → 2023-06-12 08:27 | Outpatient (BNVA) | payer MEDICARE, SELFPAY | PROVIDERS: PCP Nurse Practitioner; Referring Provider Nurse Practitioner; Visit Provider Nurse Practitioner Gerontology | DX: N39.46 Mixed incontinence (principal); Z87.440 Personal history of urinary (tract) infections | CPT/HCPCS: 51798; 99214 ==

== ENCOUNTER 2023-07-09 16:05 | Emergency (ER) | payer MEDICARE, SELFPAY ==
[2023-07-09 16:10] VITALS: BP 168/88; PULSE 70; RESP 15; TEMP 35.7; O2SAT 97
[2023-07-09 16:11] VITALS: BP 168/88; PULSE 69; O2SAT 99
--- NOTE | 2023-07-09 16:15 | DI.RAD_ITS ---
Exam(s) XR KNEE RT 3V AP,LAT,HUMA EXAM: XR KNEE RT 3V AP,LAT,HUMA CLINICAL HISTORY: Right knee pain. TECHNIQUE: 2D digital imaging was performed. COMPARISON: CR RIGHT KNEE LIMITED 1 OR 2 VIEW from 01/05/2015 CR XR knee LT 3V AP,lat,huma from 07/08/2018 FINDINGS: 3 views The right knee prosthesis (which was placed on 01/05/2015) appears intact with no fracture or looseni ng evident. Small density off the medial aspect of the joint is unchanged from 2014. IMPRESSION: Satisfactory stable appearance. No evidence of acute fracture. DATA REPOSITORY: RADIATION DOSE DELIVERED:
--- NOTE | 2023-07-09 16:15 | DI.RAD_ITS ---
Exam(s) XR HIP RT AP LAT ONLY EXAM: XR HIP RT AP LAT ONLY CLINICAL HISTORY: Hip pain. TECHNIQUE: 2D digital imaging was performed. COMPARISON: No exams were available for comparison FINDINGS: Two views. No evidence of nor dislocation. No joint space narrowing. Bone density normal. No osseous lesions. IMPRESSION: No evidence of right hip fracture. DATA REPOSITORY: RADIATION DOSE DELIVERED:
--- NOTE | 2023-07-09 16:22 | ED.GENADUL_ITS ---
Discharge Plan Disposition Patient Disposition: Home Condition: Stable Discharge Details Clinical Impression: Trochanteric bursitis of right hip, Knee pain, right Primary Care Provider: Stella Angeles ED Provider: Keya Monsalve Home Meds and New Rx's Prescriptions: New tramadol 50 mg tablet 25 mg PO BID MDD 75 PRN (Reason: pain) 10 Days Qty: 20 0RF Rx Instructions: Take half a tablet twice daily as needed for moderate to severe pain. baclofen 5 mg tablet 5 mg PO BID PRN (Reason: muscle spasm) 7 Days Qty: 14 0RF Rx Instructions: Take 1 tablet twice daily as needed for muscle spasm for the next 7 days No Action Myrbetriq 50 mg tablet extended release 24 hr 50 mg PO DAILY Qty: 90 4RF losartan-hydrochlorothiazide 50-12.5 mg tablet 1 tab PO DAILY Qty: 90 3RF aspirin [Aspir-81] 81 MG tablet,delayed release (DR/EC) 81 mg PO DAILY Qty: 1 diphenhydramine HCl 25 mg Tablet 50 mg PO HS Discharge Instructions Instructions: Knee Pain (ED), Arthritis (ED) Additional Instructions: Please take the medications as directed. You may cut them in half. Please use lidocaine patches or topical anti-inflammatory such as diclofenac/ Voltaren which you can get [id number]. Follow up with orthopedics or primary care provider in 7-10 days. Return to ED sooner if any worsening or concerns. I ncrease oral fluids. X-ray shows no acute fracture no osseous lesions. You have a small area on the inside of your joint where you are hurting that probably needs to be looked at further by orthopedics. Please wear the splint as directed. As needed for comfort. 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 X-ray of right hip shows no evidence of acute fracture no joint space narrowing. No osseous lesions. Right knee shows stable no evidence of acute fracture. There is a small density of the medial aspect of the joint which is unchanged from 2015. Patient returns from DI still complaining of pain, lidocaine patch ordered and 25 mg of tramadol p.o. We will refer patient to PCP and/or orthopedics for further evaluation and care. Differential diagnosis includes but not limited to exacerbated osteoarthritis, occult fracture, bursitis, planter fasciitis, sciatica. We will instruct patient to follow-up with orthopedics as needed and or PCP. Patient is due for physical therapy tomorrow. Patient did call after discharge stating that her pain did worsen, I did instruct her to move the lidocaine patch from her knee up to her hip or her lower back and the spasming has continued. Patient E scripted a prescription for Flexeril. She verbalized understanding. All of her questions were answered to the best my ability. This text was generated using [email or web address] system, please disregard any oddities of phrase or misspellings. HPI General Mode of arrival: ambulatory . Date/Time Provider Initiated Documentation: 07/09/23 16:09 . Limitations to Documentation: no limitations . Information obtained by: patient, RN notes reviewed and old records reviewed . HPI Narrative: 83-year-old female presents to the ER with a chief complaint of right foot knee and hip pain which has been ongoing for the last couple years after getting a right knee replacement, worse over the last 2 nights. Related Data Home Medications Medication Instructions Recorded Confirmed aspirin 81 mg tablet,delayed 81 mg PO DAILY #1 tab-cap 08/27/14 07/09/23 release (Aspir-) diphenhydramine HCl 25 mg tablet 50 mg PO HS 04/06/20 07/09/23 mirabegron 50 mg tablet,extended 50 mg PO DAILY #90 tab-caps 06/12/23 07/09/23 release 24 hr (Myrbetriq) losartan 50 mg-hydrochlorothiazide 1 tab PO DAILY #90 tabs 07/03/23 07/09/23 12.5 mg tablet baclofen 5 mg tablet 5 mg PO BID PRN muscle spasm 7 07/09/23 days #14 tabs tramadol 50 mg tablet 25 mg (1/2 x 50 mg) PO BID PRN 07/09/23 pain 10 days #20 tabs Previous Rx's Medication Instructions Recorded mirabegron 50 mg tablet,extended 50 mg PO DAILY #90 tab-caps 06/12/23 release 24 hr (Myrbetriq) losartan 50 mg-hydrochlorothiazide 1 tab PO DAILY #90 tabs 07/03/23 12.5 mg tablet baclofen 5 mg tablet 5 mg PO BID PRN muscle spasm 7 07/09/23 days #14 tabs tramadol 50 mg tablet 25 mg (1/2 x 50 mg) PO BID PRN 07/09/23 pain 10 days #20 tabs Allergies Allergy/AdvReac Type Severity Reaction Status Date / Time oxybutynin AdvReac dry mouth Verified 07/09/23 16:15 propoxyphene HCl AdvReac gi upset Verified 07/09/23 16:15 [From Darvon] Sulfa (Sulfonamide AdvReac gi upset Verified 07/09/23 16:15 Antibiotics) General Stated Complaint: Orthopedic TONEY: 4 Review of Systems All systems reviewed & are unremarkable except as noted in HPI and below Musculoskeletal Musculoskeletal: Reports as per HPI (Pain shoots up from her foot into her knee and hip) and Reports arthralgias (Patient reports that she feels her right knee freezing up, ) PFSH All Active Problems (Updated 07/09/23 @ 17:46 by Keya Monsalve NP) Knee pain, right (Acute) Trochanteric bursitis of right hip (Acute) Essential hypertension (Acute) Fracture of base of fifth metatarsal bone of right foot (Acute 02/07/22) Peroneal tendonitis of right lower extremity (Acute) COVID (Acute 05/2022) Dysfunction of right eustachian tube (Acute) Impacted cerumen of both ears (Acute) Osteoarthritis of carpometacarpal (CMC) joint of left thumb (Acute) Trigger finger, left ring finger (Acute) Injected: 10/19/2019 Chest pain (Acute) MCINTOSH (dyspnea on exertion) (Acute) Blurred vision, left eye (Acute) Cough (Acute) Insomnia (Acute) Osteopenia (Acute 06/29/13) Actinic keratoses (Acute) Seborrheic keratoses (Chronic) Neoplasm of unspecified behavior of bone, soft tissue, and skin (Acute) Left holiness ENT/Camille Urinary incontinence, mixed (Acute 01/29/17) 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 mostly on right side b. 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 [place] (fortyfive) years ago Osteoarthritis of right knee (Acute 01/05/15) Medical History (Updated 07/09/23 @ 17:46 by Keya Monsalve NP) Fracture of metatarsal of right foot, closed History of squamous cell carcinoma Wrist pain, left (12/06/15) Diffuse cystic mastopathy (01/17/12) Surgical History (Updated 03/21/22 @ 15:07 by Tameka Ernandez RN, RN) Foot fracture, left (Unknown) 01/2022 5th metatarsal Hx of tonsillectomy (Unknown) History of hysterectomy (Unknown) Hx of cholecystectomy (Unknown) Hx of appendectomy (Unknown) History of total knee arthroplasty (06/23/14) Left Shave excision rgt forehead (02/20/16) Pathology: -Squamous cell carcinoma in situ -Extensive follicular involvement present -Squamous cell carcinoma in situ present at peripheral and deep tissue edges. R total knee arthroplasty (01/05/15) Arun H/O surgical procedure a. Thymectomy b. Appendectomy c. Open cholecystectomy d. Tonsillectomy e. Hysterectomy f. Repair of a Lisfrank fx, left foot g. Colonoscopy Family History Mother Stroke Father Heart disease heart failure Pneumonia Diabetes Sister Personal history of malignant neoplasm ovarian and colon ca Brother Personal history of malignant neoplasm prostate and colon Essential hypertension Son Diabetes Essential hypertension Social History (Updated 08/22/22 @ 13:37 by Deborah Simpson LPN) Smoking/Tobacco Use Status: Never Second Hand Exposure: Yes Smoking risk assessment performed?: Yes Alcohol Intake: never Drug use: Never Substance use type: does not use Adopted: No Household members: none Housing: apartment Number of Children: 2 number of grandchildren: 6 Communication Needs: Hard of Hearing and Corrective Lenses Do you need help understanding health information?: Rarely current occupation: retried from [employer] Pets and animals: No Do you think of yourself as: straight/heterosexual Current gender identity: female What is your relationship status?: How often do you talk on the phone with friends or family?: three or more times per week Panel score (0-1 are the most socially isolated patients): 1 What type of physical activity do you participate in: none Duration: 15-30 minutes/day Frequency: daily Seatbelt use: always Drive intox or ride w/intox swing driver: No Working smoke detector in home: Yes Fire extinguisher in home: Yes Carbon monox detector in home: Yes Do you feel safe at home: Yes Do you feel safe in your relationship?: Yes Victim of physical abuse: No Victim of emotional abuse: No Additional Social history: lives above children - has own apartment. Has a male friend Exam Narrative Exam Narrative: Constitutional: Alert and oriented x3. Appears stated age. Overweight body habitus. Head: Normocephalic, no trauma. Musculoskeletal: Ambulatory upon arrival, 5/5 strength to all four extremities. Vertical incision noted to the anterior right knee, no significant swelling or erythema noted to the joint, she does have some medial joint tenderness with palpation and lateral tenderness with palpation. Negative anterior posterior drawer test. Right lateral hip tenderness with palpation. Skin: No suspicious rashes or lesions. Capillary refill less than 2 sec. no pedal edema noted to lower extremities, no foot pain with palpation. Neurologic: Cranial nerves II-XII intact. Alert and oriented x 3. Motor: No deficits noted. Sensory: Intact bilaterally all 4 extremities. Reflexes: DTR's intact bilaterally.. Hematologic/Lymphatic: No ecchymosis, no lymphadenopathy. Course Vital Signs Vital signs: Vital Signs Temperature 35.7 C L 07/09/23 16:10 Pulse 70 07/09/23 16:10 Respiratory Rate 15 07/09/23 16:10 Blood Pressure 168/88 H 07/09/23 16:10 Pulse Oximetry 97 07/09/23 16:10 Temperature 35.7 C L 07/09/23 16:10 Temperature Source Tympanic 07/09/23 16:10 Pulse 69 07/09/23 16:11 Respiratory Rate 15 07/09/23 16:10 Respiratory Effort Normal 07/09/23 16:13 Blood Pressure 168/88 H 07/09/23 16:11 Blood Pressure Mean 115 07/09/23 16:11 Blood Pressure Position Sitting 07/09/23 16:10 Pulse Oximetry 99 07/09/23 16:11 Oxygen Delivery Method Room Air 07/09/23 16:10 Oxygen Flow Rate 0 07/09/23 16:10 Pain Level 10 07/09/23 16:13
[2023-07-09] MEDS: Lidocaine 5% Patch 1 PATCH TP (17:31)
[2023-07-09] MEDS: traMADol 50 MG TAB 25 MG PO (17:32)
[2023-07-09 17:36] VITALS: O2SAT 100
[2023-07-09 17:37] VITALS: BP 173/65; PULSE 60; O2SAT 99
[2023-07-09 17:40] VITALS: O2SAT 99
[2023-07-09 17:46] VITALS: BP 157/61; PULSE 62; O2SAT 99
== END 2023-07-09 18:07 | disposition home or self-care (01) ==
PROVIDERS: Emergency Provider Registered Nurse Emergency; PCP Nurse Practitioner
DX: M25.561 Pain in right knee (principal); M70.61 Trochanteric bursitis, right hip; Z79.82 Long term (current) use of aspirin; Z79.899 Other long term (current) drug therapy; M79.671 Pain in right foot; Z96.651 Presence of right artificial knee joint; I10 Essential (primary) hypertension
CPT/HCPCS: 29530; 73562; 99283; 73502

== ENCOUNTER 2023-08-26 15:17 | Outpatient (REF) | payer MEDICARE, SELFPAY | END 2023-08-26 15:18 | disposition home or self-care (01) | LOC: LBN 15:17 | PROVIDERS: PCP Nurse Practitioner; Visit Provider Nurse Practitioner | DX: R30.0 Dysuria (principal) | CPT/HCPCS: 87077; 87086; 87186 ==

== ENCOUNTER → 2023-08-30 08:47 | Outpatient (BNVA) | payer MEDICARE, SELFPAY | PROVIDERS: PCP Nurse Practitioner; Referring Provider Nurse Practitioner; Visit Provider Student in an Organized Health Care Education/Training Program | DX: M70.61 Trochanteric bursitis, right hip (principal) | CPT/HCPCS: 20610; J1040 ==

== ENCOUNTER 2023-09-24 05:19 | Outpatient (CLI) | payer MEDICARE, SELFPAY ==
[2023-09-24 10:54] LABS: Hemoglobin A1C 5.5 % (<5.7)
[2023-09-24 11:01] LABS: ALT 18 U/L (14-59); AST 13 U/L (15-37); Albumin 3.2 g/dL (3.4-5.0); Alkaline Phosphatase 96 U/L (46-116); Anion Gap 6.4 mmol/L (3-11); BUN 22 mg/dL (7-18); Bilirubin, Total 0.6 mg/dL (0.2-1.0); CO2 31.6 mmol/L (21.0-32.0); CREATININE 0.8 mg/dL (0.55-1.02); Calcium 9.1 mg/dL (8.5-10.1); Calculated LDL 96 mg/dL (<100); Chloride 105 mmol/L (98-107); Cholesterol 172 mg/dL (<200); Estimated GFR 73.52 (mL/min/1.73m2); Glucose 97 mg/dL (74-106); HDL Cholesterol 59 mg/dL (40-60); Potassium 3.6 mmol/L (3.5-5.1); Sodium 143 mmol/L (136-145); Triglyceride 88 mg/dL (<150)
== END 2023-09-24 05:20 | disposition home or self-care (01) ==
LOC: LBO 05:19
PROVIDERS: PCP Nurse Practitioner; Visit Provider Nurse Practitioner
DX: I10 Essential (primary) hypertension (principal); R73.03 Prediabetes
CPT/HCPCS: 36415; 80053; 80061; 83036

== ENCOUNTER 2023-11-25 11:41 | Outpatient (CLI) | payer MEDICARE, SELFPAY ==
[2023-11-25 11:40] LABS: Abs Immature Grans 0.02 10^3/uL (0.0-0.06); Absolute Basophil Count 0.05 10^3/uL (0.0-0.2); Absolute Eosinophil Count 0.13 10^3/uL (0.0-0.7); Absolute Monocyte Count 0.66 10^3/uL (0.1-0.8); Absolute Neutrophil Count 4.46 10^3/uL (1.2-6.7); Basophils % 0.8; HCT 39.6 % (36.0-46.0); HGB 12.8 g/dL (11.2-15.7); Immature Grans % 0.3; Lymphocytes % 19.6; MCHC 32.3 % (32.0-36.0); MCV 93 fL (80-95); MPV 9.7 fL (8.0-11.0); Neutrophils % 67.3; Platelet Count 310 10^3/uL (130-400); RBC 4.27 10^6/uL (3.93-5.22); RDW 12.2 % (11.7-14.6); RDW-SD 41.6 fL; WBC 6.62 10^3/uL (4.4-10.8)
[2023-11-25 12:07] LABS: C-Reactive Protein 2.11 mg/dL (<or=0.5); TSH (W/Ref FT4) 1.85 uIU/mL (0.36-3.74)
[2023-11-25 13:20] LABS: Bilirubin Negative (Negative); Blood Trace-intact (Negative); Clarity Cloudy (Clear); Glucose Negative (Negative); Ketones Negative (Negative); Leukocyte Esterase Moderate (Negative); Nitrite Negative (Negative)
[2023-11-25 14:13] LABS: RBC 0-2 HPF (0-2); WBC >50 HPF (0-5)
[2023-11-25 14:14] LABS: Bacteria Moderate HPF (Negative); Crystals Negative HPF (Negative); Epithelial Cells Moderate HPF (Negative); Mucus Negative (Negative)
[2023-11-25 14:15] LABS: C & S Indicated? No/Sq. Contamination; Casts 0-2 Fine Granular LPF (Negative)
[2023-11-25 19:48] LABS: HIV-1/2 Ag & Ab Screen Negative (Negative)
[2023-11-27 13:03] LABS: TB Interpretation Negative (Negative); TB1 Ag minus Nil 0.01 IU/ml; TB2 Ag minus Nil 0.01 IU/mL
== END 2023-11-25 11:42 | disposition home or self-care (01) ==
LOC: LBO 11:41
PROVIDERS: PCP Nurse Practitioner; Visit Provider Nurse Practitioner
DX: I10 Essential (primary) hypertension (principal); R61 Generalized hyperhidrosis; J45.909 Unspecified asthma, uncomplicated
CPT/HCPCS: 36415; 87389; 81003; 81015; 84443; 85025; 86140; 86480

== ENCOUNTER → 2023-11-27 01:56 | Outpatient (CLI) | payer MEDICARE, SELFPAY ==
--- NOTE | 2023-11-27 06:45 | DI.RAD_ITS ---
Exam(s) XR CHEST 2V PA LATERAL EXAM: XR CHEST 2V PA LATERAL CLINICAL HISTORY: night sweats,r61 TECHNIQUE: 2D digital imaging was performed of the chest. Two images were obtained. PA and lateral views were obtained. COMPARISON: No exams were available for comparison FINDINGS: MEDIASTINUM: Normal. HEART: Normal. PULMONARY VASCULATURE: Normal. LUNGS: Increased lung markings are seen in the right base. No focal consolidating infiltrates are se en. There is flattening of the hemidiaphragms which may reflect underlying COPD. PLEURAL SPACE: No pleural effusion or pneumothorax. BONE:Within normal limits for the patient's age. Chronic right rib deformities are seen. OTHER FINDINGS:Normal. IMPRESSION: Increased linear markings in the right lung base. This may represent a developing pneumonia, atelect asis or scarring. DATA REPOSITORY: RADIATION DOSE DELIVERED:
== END ==
PROVIDERS: PCP Nurse Practitioner; Visit Provider Nurse Practitioner
DX: R61 Generalized hyperhidrosis (principal)
CPT/HCPCS: 71046

== ENCOUNTER → 2023-12-03 02:42 | Outpatient (CLI) | payer MEDICARE, SELFPAY ==
--- NOTE | 2023-12-03 07:30 | DI.CT_ITS ---
Exam(s) CT ABDOMEN PELVIS W EXAM: CT ABDOMEN PELVIS W CLINICAL HISTORY: LLQ pain,fecal incontinence,night sweats,FAMILY H/O CA. TECHNIQUE: Imaging Protocol: Axial computed tomography images with coronal and sagittal reformatted images were created and reviewed CONTRAST MATERIAL: Intravenous: Omnipaque 350 Contrast volume:100 ml Oral: yes COMPARISON: CT RENAL COLIC WO CONTRAST from 03/08/2015 FINDINGS: ABDOMEN and PELVIS: Lung Bases: No acute findings. Liver: Normal density. No measurable mass. Gallbladder and biliary tract: No radiodense calculus or biliary dilation. Pancreas: Normal density. No abnormal calcifications or inflammatory process. No evidence of mass. Spleen: Normal. Kidneys: Normal size, contour and axis. No radiodense stones. No obstructive uropathy. No suspicious masses seen. Adrenal glands: No masses seen. Vasculature: Abdominal aorta non-dilated. Soft tissues: Small fatty containing umbilical hernia. Bladder: No gross wall thickening. No calculi.No focal mass. Bowel: Diverticulosis. No obstruction. No bowel wall thickening. No evidence of appendicitis. No mass visible.. Peritoneal cavity: No ascites. No focal collection or mesenteric inflammatory response. Bones: Degenerative changes in the spine. Reproductive organs: Status post hysterectomy. Lymph nodes: Unremarkable. IMPRESSION:: No acute abnormality in the abdomen and pelvis. Diverticulosis without evidence of div erticulitis. RADIATION DOSE DELIVERED: 1,246.47mGy.cm Total DLP DATA REPOSITORY: All CT scans at this facility are submitted to the National Radiology Data Registry (NRDR) Dose Index Registry (DIR) with the [employer] (ACR). RADIATION OPTIMIZATION: All CT scans at this facility use at least one of these dose optimization te chniques: automated exposure control; mA and/or kV adjustment per patient size (includes targeted exa ms where dose is matched to clinical indication); or iterative reconstruction.
[2023-12-03 09:38] LABS: CREATININE 0.8 mg/dL (0.55-1.02); Estimated GFR 73.52 (mL/min/1.73m2)
[2023-12-03] MEDS: Omnipaque 350 MG/ML 100 ML BTL IJ (10:09)
[2023-12-03] MEDS: Normal Saline - Diluent 50 ML VIAL IJ (10:09)
[2023-12-03] MEDS: Barium Sulfate 2% W/V-Berry Smoothie 450 ML BTL PO ×2 (10:11→10:12)
== END ==
PROVIDERS: PCP Nurse Practitioner; Visit Provider Nurse Practitioner
DX: K57.30 Diverticulosis of large intestine without perforation or abscess without bleeding (principal); R61 Generalized hyperhidrosis; Z80.0 Family history of malignant neoplasm of digestive organs
CPT/HCPCS: 74177; 82565; J3490

== ENCOUNTER → 2023-12-31 00:07 | Outpatient (CLI) | payer MEDICARE, SELFPAY ==
--- NOTE | 2023-12-31 07:48 | DI.RAD_ITS ---
Exam(s) XR CHEST 2V PA LATERAL EXAM: XR CHEST 2V PA LATERAL CLINICAL HISTORY: f/u abnormal CXR,r93.89,LINEAR MARKINGS TECHNIQUE: 2D digital imaging was performed of the chest. Two images were obtained. PA and lateral views were obtained. COMPARISON: CR XR CHEST 2V PA LATERAL from 11/27/2023 FINDINGS: MEDIASTINUM: Normal. HEART: Normal. Mitral calcification is seen. PULMONARY VASCULATURE: Normal. LUNGS: No focal consolidating infiltrates. The right basilar linear markings have resolved. There d oes appear to be mild underlying chronic scarring in the right lung base. PLEURAL SPACE: No pleural effusion or pneumothorax. There is unchanged blunting in the right costophr enic angle likely reflecting scarring. BONE:Within normal limits for the patient's age. OTHER FINDINGS:Normal. IMPRESSION: No acute pulmonary findings. DATA REPOSITORY: RADIATION DOSE DELIVERED:
== END ==
PROVIDERS: PCP Nurse Practitioner; Visit Provider Nurse Practitioner
DX: R93.89 Abnormal findings on diagnostic imaging of other specified body structures (principal)
CPT/HCPCS: 71046

== ENCOUNTER 2024-01-30 20:59 | Outpatient (REF) | payer MEDICARE, SELFPAY | END 2024-01-30 21:00 | disposition home or self-care (01) | LOC: LBN 20:59 | PROVIDERS: PCP Nurse Practitioner; Visit Provider Physician Assistant Medical | DX: J02.9 Acute pharyngitis, unspecified (principal) | CPT/HCPCS: 87637; 87070 ==

== ENCOUNTER → 2024-02-20 09:18 | Outpatient (BNVA) | payer MEDICARE, SELFPAY | PROVIDERS: PCP Nurse Practitioner; Referring Provider Nurse Practitioner | DX: M76.71 Peroneal tendinitis, right leg (principal) | CPT/HCPCS: 99213 ==

== ENCOUNTER 2024-05-29 18:51 | Outpatient (REF) | payer MEDICARE, SELFPAY ==
[2024-05-29 21:31] LABS: Bacteria Few HPF (Negative); C & S Indicated? C&S Done As Ordered; Casts Negative LPF (Negative); Crystals Negative HPF (Negative); Epithelial Cells Few HPF (Negative); Mucus Negative (Negative); RBC Negative HPF (0-2); WBC >50 HPF (0-5)
== END 2024-05-29 18:52 | disposition home or self-care (01) ==
LOC: LBN 18:51
PROVIDERS: PCP Nurse Practitioner; Visit Provider Physician Assistant Medical
DX: R30.0 Dysuria (principal); B96.29 Other Escherichia coli [E. coli] as the cause of diseases classified elsewhere; R82.89 Other abnormal findings on cytological and histological examination of urine
CPT/HCPCS: 87077; 81015; 87086; 87186

== ENCOUNTER → 2024-06-10 10:25 | Outpatient (BNVA) | payer MEDICARE, SELFPAY | PROVIDERS: PCP Nurse Practitioner; Visit Provider Nurse Practitioner Gerontology | DX: N39.46 Mixed incontinence (principal); R05.9 Cough, unspecified | CPT/HCPCS: 51798; 99214 ==

== ENCOUNTER 2024-08-11 18:40 | Observation (INO) | payer MEDICARE, SELFPAY ==
[2024-08-11] VITALS (33 sets, daily range): BP systolic 134–245; BP diastolic 66–139; PULSE 63–87; RESP 13–30; TEMP 36.8; O2SAT 96–99
--- NOTE | 2024-08-11 18:45 | RT.EKG_ITS ---
APPROVED REPORT Exam: Resting ECG Reason for Exam: facial drooping Patient Location: E HR:78 bpm ECG Measurements Heart Rate 78 AXIS DC 157 P 0 QRSd 84 QRS -23 QT 399 T 43 QTc 455 Conclusion Sinus rhythm...normal P axis, V-rate 60- 99 Low voltage, precordial leads...precordial leads <1.0mV appropriate intervals no ST segment or T wave abnormalities to suggest occlusive ND
--- NOTE | 2024-08-11 19:18 | DI.CT_ITS ---
Exam(s) CT NECK W EXAM: CT NECK W CLINICAL HISTORY: left neck/jaw swelling. TECHNIQUE: Imaging Protocol: Axial computed tomography images with coronal and sagittal reformatted images were created and reviewed. CONTRAST MATERIAL: Intravenous: Omnipaque 350 Contrast volume:100mL COMPARISON: CT CT HEAD WO from 10/12/2019 FINDINGS: Orbits and orbital soft tissues: Within normal limits. Visualized paranasal sinuses: There is complete opacification of the right maxillary sinus. The rem aining visualized paranasal sinuses and mastoid air cells are clear. Nasopharynx: Within normal limits. Oropharynx: Within normal limits. Hypopharynx: Within normal limits. Larynx: Within normal limits. Retropharyngeal space: Within normal limits. Parotids/submandibular: There is mild infiltration of the left parotid gland. No focal fluid collec tion is seen to suggest an abscess. There is mild infiltration of the soft tissues around the left p arotid gland and in the submandibular region. The submandibular glands appear symmetric and unremark able. The right parotid gland is unremarkable. Thyroid gland: There are couple of nodules in the thyroid gland. The largest measures 5 mm and is l ocated in the left lobe of the thyroid gland. Lymphadenopathy: There is scattered lymph nodes seen along the level one to level three all measurin g less than 8 mm in short axis diameter which are physiologic in nature. Trachea: Within normal limits. Lung apices: Within normal limits. Bones: Within normal limits for the patient's age. Carotids/Jugular: Within normal limits. Soft tissues: Within normal limits. IMPRESSION: Infiltration of the left parotid gland and the subcutaneous tissues along the left neck and submandib ular region. This may represent a parotiditis. No focal fluid collection is seen to suggest an absc ess. RADIATION DOSE DELIVERED: 369.29mGy.cm Total DLP 369.29mGy.cm Total DLP DATA REPOSITORY: All CT scans at this facility are submitted to the National Radiology Data Registry (NRDR) Dose Index Registry (DIR) with the [employer] ([employer]). RADIATION OPTIMIZATION: All CT scans at this facility use at least one of these dose optimization te chniques: automated exposure control; mA and/or kV adjustment per patient size (includes targeted exa ms where dose is matched to clinical indication); or iterative reconstruction.
[2024-08-11 19:31] LABS: Abs Immature Grans 0.02 10^3/uL (0.0-0.06); Absolute Basophil Count 0.05 10^3/uL (0.0-0.2); Absolute Eosinophil Count 0.16 10^3/uL (0.0-0.7); Absolute Lymphocyte Count 1.35 10^3/uL (1.2-3.4); Absolute Monocyte Count 0.66 10^3/uL (0.1-0.8); Absolute Neutrophil Count 4.97 10^3/uL (1.2-6.7); Basophils % 0.7 %; Eosinophils % 2.2 %; HCT 39.5 % (36.0-46.0); HGB 12.8 g/dL (11.2-15.7); Immature Grans % 0.3 %; Lymphocytes % 18.7 %; MCH 30.2 pg (27.0-33.0); MCHC 32.4 % (32.0-36.0); MCV 93 fL (80-95); MPV 10.2 fL (8.0-11.0); Monocytes % 9.2 %; Neutrophils % 68.9 %; Platelet Count 264 10^3/uL (130-400); RBC 4.24 10^6/uL (3.93-5.22); RDW 12.3 % (11.7-14.6); WBC 7.21 10^3/uL (4.4-10.8)
--- NOTE | 2024-08-11 19:46 | ED.GENADUL_ITS ---
Discharge Plan Discharge Details Chief Complaint: [facility]Medical Primary Care Provider: Stella Angeles ED Provider: Nelda Alejandra Home Meds and New Rx's Prescriptions: No Action mirabegron [Myrbetriq] 50 mg tablet extended release 24 hr 50 mg PO DAILY Qty: 90 4RF losartan-hydrochlorothiazide 50-12.5 mg tablet 1 tab PO DAILY Qty: 90 3RF aspirin [Aspir-81] 81 MG tablet,delayed release (DR/EC) 81 mg PO DAILY Qty: 1 diphenhydramine HCl 25 mg Tablet 50 mg PO HS HPI General Mode of arrival: ambulatory . Date/Time Provider Initiated Documentation: 08/11/24 18:50 . Limitations to Documentation: no limitations . Information obtained by: patient . HPI Narrative: 84yo F with hx HTN, obesity, asthma, presenting for left sided neck swelling. Started around 6pm this afternoon and was visibly noticeably to her family. Has decreased in size since then but now is tender. Has never had anything like this happen before. No fevers. No difficulty swallowing, no difficulty with secretions. No pain with moving her neck or jaw. No recent injury to the area; did fall 2 days ago (Saturday), tripped and fell backwards while helping someone put on their shoes, landed on her back/buttocks and did not injury her head or neck. Also reports night sweats for the past year or so with unrevealing workups by her primary care doctor; this is not any worse than usual lately. Otherwise in her usual state of health with no rash, nausea, vomiting, chest pain, shortness of breath, abdominal pain, or other concerns. Related Data Home Medications ?Medication ?Instructions ?Recorded ?Confirmed aspirin 81 mg tablet,delayed 81 mg PO DAILY #1 tab-cap 08/27/14 08/11/24 release (Aspir-) diphenhydramine HCl 25 mg tablet 50 mg PO HS 04/06/20 08/11/24 losartan 50 mg-hydrochlorothiazide 1 tab PO DAILY #90 tabs 06/03/24 08/11/24 12.5 mg tablet mirabegron 50 mg tablet,extended 50 mg PO DAILY #90 tab-caps 06/10/24 08/11/24 release 24 hr (Myrbetriq) Previous Rx's ?Medication ?Instructions ?Recorded losartan 50 mg-hydrochlorothiazide 1 tab PO DAILY #90 tabs 06/03/24 12.5 mg tablet mirabegron 50 mg tablet,extended 50 mg PO DAILY #90 tab-caps 06/10/24 release 24 hr (Myrbetriq) Allergies Allergy/AdvReac Type Severity Reaction Status Date / Time oxybutynin AdvReac dry mouth Verified 08/11/24 19:13 propoxyphene HCl (From AdvReac gi upset Verified 08/11/24 19:13 Darvon) Sulfa (Sulfonamide AdvReac gi upset Verified 08/11/24 19:13 Antibiotics) General Stated Complaint: GenMedical TONEY: 3 Review of Systems Narrative: see HPI Exam Narrative Exam Narrative: General: Alert, well appearing, well nourished, in no acute distress. Head: Normocephalic, atraumatic Neck: Trachea midline, ?Neck supple. Swollen and tender to palpation of face and neck around angle of left mandible; no erythema or palpable fluctuance or discrete mass. ENT: ?MMM.? No oropharygeal lesions or exudate. Cardiac: ?RRR, no murmurs appreciated Resp: No respiratory distress. CTAB. Abd: ?Soft, non-distended, nontender Extremities: ?No deformities.? No peripheral edema. Neurologic: GCS 15. ? Moves all extremities freely against gravity Course Vital Signs Vital signs: Vital Signs Temperature 36.8 C 08/11/24 18:43 Pulse 87 08/11/24 18:43 Respiratory Rate 15 08/11/24 18:43 Blood Pressure 245/93 H 08/11/24 18:43 Pulse Oximetry 99 08/11/24 18:43 Temperature 36.8 C 08/11/24 18:43 Temperature Source Oral 08/11/24 18:43 Pulse 87 08/11/24 18:43 Respiratory Rate 18 08/11/24 19:09 Respiratory Effort Normal, Non-Labored 08/11/24 19:09 Blood Pressure 179/74 H 08/11/24 19:09 Blood Pressure Position Sitting 08/11/24 18:43 Pulse Oximetry 99 08/11/24 18:43 Oxygen Delivery Method Room Air 08/11/24 18:43 Oxygen Flow Rate 0 08/11/24 18:43 Lab/Test Results Lab/Test Results: Laboratory Tests Range/Units 08/11/24 19:05 WBC (4.4-10.8) 10^3/uL 7.21 RBC (3.93-5.22) 10^6/uL 4.24 Hgb (11.2-15.7) g/dL 12.8 Hct (36.0-46.0) % 39.5 MCV (80-95) fL 93 MCH (27.0-33.0) pg 30.2 MCHC (32.0-36.0) % 32.4 RDW (11.7-14.6) % 12.3 Plt Count (130-400) 10^3/uL 264 MPV (8.0-11.0) fL 10.2 Immature Gran % % 0.3 Neutrophils % % 68.9 Lymphocytes % % 18.7 Monocytes % % 9.2 Eosinophils % % 2.2 Basophils % % 0.7 Nucleated RBC % (0.0-0.3) % 0.0 Absolute Neutrophils (1.2-6.7) 10^3/uL 4.97 Absolute Lymphocytes (1.2-3.4) 10^3/uL 1.35 Absolute Monocytes (0.1-0.8) 10^3/uL 0.66 Absolute Eosinophils (0.0-0.7) 10^3/uL 0.16 Absolute Basophils (0.0-0.2) 10^3/uL 0.05 Medical Decision Making 84yo F with hx HTN, obesity, asthma, presenting for left sided neck swelling. Started around 6pm this afternoon and was visibly noticeably to her family. Has decreased in size since then but now is tender. Markedly hypertensive on arrival 245/93, vital signs otherwise reassuring. She denies any discrete symptoms of hypertensive emergency. Repeat BP improved to 179/74 without intervention; would not acutely lower any more at this time. Non-toxic on exam and no distress or respiratory compromise; does have palpable left neck/facial swelling and tenderness at angle of mandible without a discrete palpable mass. Will get CT with contrast to evaluate, as well as labs as well as EKG and troponins given marked hypertension on arrival -EKG on arrival NSR, no ST segment or T wave abnormalities to suggest occlusive RI. -CT neck independently reviewed; no discrete abscess on my view, radiology read below with no acute findings. Suspect parotitis based on exam. -Labs reviewed as below, CBC with no leukocytosis or anemia, CMP with no actionable abnormalities, Mg normal, BNP not suggestive of acute heart failure, trop elevated at 164 with 2 hour repeat slightly downtrending to 150. Given troponin elevation in the setting of severe hypertension on arrival, consistent with hypertensive emergency. Patient's BP did markedly improve and downtrend without any intervention, now 150's/100's. Given this, warrants at least observation to further monitor BP and trend troponin. Discussed [facility] hospitalist Dr Nevarez; pt accepted for observation. Awaiting orders and tra nsfer to the floor. Imaging Data Radiologic Study: Imaging: CT Scan Radiologist's impression: IMPRESSION: No acute process. No evidence of neck mass or abscess Lab Data Lab results reviewed: Yes I reviewed the patient's lab results. Labs: Laboratory Tests Range/Units 08/11/24 08/11/24 19:05 21:04 WBC (4.4-10.8) 10^3/uL 7.21 RBC (3.93-5.22) 10^6/uL 4.24 Hgb (11.2-15.7) g/dL 12.8 Hct (36.0-46.0) % 39.5 MCV (80-95) fL 93 MCH (27.0-33.0) pg 30.2 MCHC (32.0-36.0) % 32.4 RDW (11.7-14.6) % 12.3 Plt Count (130-400) 10^3/uL 264 MPV (8.0-11.0) fL 10.2 Immature Gran % % 0.3 Neutrophils % % 68.9 Lymphocytes % % 18.7 Monocytes % % 9.2 Eosinophils % % 2.2 Basophils % % 0.7 Nucleated RBC % (0.0-0.3) % 0.0 Absolute Neutrophils (1.2-6.7) 10^3/uL 4.97 Absolute Lymphocytes (1.2-3.4) 10^3/uL 1.35 Absolute Monocytes (0.1-0.8) 10^3/uL 0.66 Absolute Eosinophils (0.0-0.7) 10^3/uL 0.16 Absolute Basophils (0.0-0.2) 10^3/uL 0.05 Sodium (136-145) mmol/L 141 Potassium (3.5-5.1) mmol/L 3.7 Chloride (98-107) mmol/L 106 Carbon Dioxide (21.0-32.0) mmol/L 30.3 Anion Gap (3-11) mmol/L 4.7 BUN (7-18) mg/dL 18 Creatinine (0.55-1.02) mg/dL 0.9 Est GFR (CKD-EPI 2020) (mL/min/1.73m2) 63.43 Glucose (74-106) mg/dL 127 H Calcium (8.5-10.1) mg/dL 9.3 Magnesium (1.8-2.4) mg/dL 1.9 Total Bilirubin (0.2-1.0) mg/dL 0.40 AST (15-37) U/L 21 ALT (14-59) U/L 15 Alkaline Phosphatase (46-116) U/L 87 Troponin I (<or=51) ng/L 162 H* 150 H* NT-Pro-B Natriuret Pep (<300) pg/mL 379 H Total Protein (6.4-8.2) g/dL 7.2 Albumin (3.4-5.0) g/dL 3.5 Quality:SDOH Health Related Social Needs: No Data to Display PFSH All Active Problems (Updated 02/26/24 @ 17:13 by Rebecca Naidu MD) Hot flashes not due to menopause (Acute) Peroneal tendonitis of right lower leg (Acute) Family history of colon cancer (Acute) Trochanteric bursitis of right hip (Acute) DEPO MEDROL: 08/30/2023 Essential hypertension (Acute) Fracture of base of fifth metatarsal bone of right foot (Acute 02/07/22) Peroneal tendonitis of right lower extremity (Acute) COVID (Acute 05/2022) Dysfunction of right eustachian tube (Acute) Impacted cerumen of both ears (Acute) Osteoarthritis of carpometacarpal (CMC) joint of left thumb (Acute) Trigger finger, left ring finger (Acute) Injected: 10/19/2019 Chest pain (Acute) MCINTOSH (dyspnea on exertion) (Acute) Blurred vision, left eye (Acute) Cough (Acute) Insomnia (Acute) Osteopenia (Acute 06/29/13) Actinic keratoses (Acute) Seborrheic keratoses (Chronic) Neoplasm of unspecified behavior of bone, soft tissue, and skin (Acute) Left gnosticist ENT/Camille Urinary incontinence, mixed (Acute 01/29/17) 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 mostly on right side b. 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 [place]) years ago Osteoarthritis of right knee (Acute 01/05/15) Medical History (Updated 02/26/24 @ 17:13 by Rebecca Naidu MD) Fracture of metatarsal of right foot, closed History of squamous cell carcinoma Wrist pain, left (12/06/15) Diffuse cystic mastopathy (01/17/12) Surgical History (Updated 03/21/22 @ 15:07 by Tameka Ernandez RN, RN) Foot fracture, left (Unknown) 01/2022 5th metatarsal Hx of tonsillectomy (Unknown) History of hysterectomy (Unknown) Hx of cholecystectomy (Unknown) Hx of appendectomy (Unknown) History of total knee arthroplasty (06/23/14) Left Shave excision rgt forehead (02/20/16) Pathology: -Squamous cell carcinoma in situ -Extensive follicular involvement present -Squamous cell carcinoma in situ present at peripheral and deep tissue edges. R total knee arthroplasty (01/05/15) Arun H/O surgical procedure a. Thymectomy b. Appendectomy c. Open cholecystectomy d. Tonsillectomy e. Hysterectomy f. Repair of a Lisfrank fx, left foot g. Colonoscopy Family History Mother Stroke Father Heart disease heart failure Pneumonia Diabetes Sister Personal history of malignant neoplasm ovarian and colon ca Brother Personal history of malignant neoplasm prostate and colon Essential hypertension Son Diabetes Essential hypertension Social History (Updated 08/22/22 @ 13:37 by Deborah Simpson LPN) Smoking/Tobacco Use Status: Never Second Hand Exposure: Yes Smoking risk assessment performed?: Yes Alcohol Intake: never Drug use: Never Substance use type: does not use Adopted: No Household members: none Housing: apartment Number of Children: 2 number of grandchildren: 6 Communication Needs: Hard of Hearing and Corrective Lenses Do you need help understanding health information?: Rarely current occupation: retried from [employer] Pets and animals: No Do you think of yourself as: straight/heterosexual Current gender identity: female What is your relationship status?: How often do you talk on the phone with friends or family?: three or more times per week Panel score (0-1 are the most socially isolated patients): 1 What type of physical activity do you participate in: none Duration: 15-30 minutes/day Frequency: daily Seatbelt use: always Drive intox or ride w/intox otr driver: No Working smoke detector in home: Yes Fire extinguisher in home: Yes Carbon monox detector in home: Yes Do you feel safe at home: Yes Do you feel safe in your relationship?: Yes Victim of physical abuse: No Victim of emotional abuse: No Additional Social history: lives above children - has own apartment. Has a male friend
[2024-08-11] MEDS: Omnipaque 350 MG/ML 100 ML BTL IJ (19:49)
[2024-08-11 19:50] LABS: ALT 15 U/L (14-59); AST 21 U/L (15-37); Albumin 3.5 g/dL (3.4-5.0); Alkaline Phosphatase 87 U/L (46-116); Anion Gap 4.7 mmol/L (3-11); BUN 18 mg/dL (7-18); CO2 30.3 mmol/L (21.0-32.0); CREATININE 0.9 mg/dL (0.55-1.02); Calcium 9.3 mg/dL (8.5-10.1); Chloride 106 mmol/L (98-107); Estimated GFR 63.43 (mL/min/1.73m2); Glucose 127 mg/dL (74-106); Potassium 3.7 mmol/L (3.5-5.1); Sodium 141 mmol/L (136-145); Total Protein 7.2 g/dL (6.4-8.2)
[2024-08-11] MEDS: Normal Saline - Diluent 50 ML VIAL IJ (19:50)
[2024-08-11 19:51] LABS: Troponin I 162 ng/L (<or=51)
--- NOTE | 2024-08-11 21:18 | DI.VRAD_ITS ---
PROCEDURE INFORMATION: Exam: CT Neck With Contrast Exam date and time: 08/11/2024 7:52 PM Age: 84 years old Clinical indication: Other: Left neck/jaw swelling TECHNIQUE: Imaging protocol: Computed tomography of the neck with contrast. Contrast material: OMNIPAQUE 350; Contrast volume: 100 ml; Contrast route: INTRAVENOUS (IV); COMPARISON: US CAROTID 09/29/2019 3:06 PM FINDINGS: Paranasal sinuses: Complete opacification of the right maxillary sinus. Salivary glands: Normal. Glands are normal in size. Pharynx: Unremarkable. No significant tonsillar enlargement. Prevertebral and retropharyngeal spaces: Unremarkable. Larynx: Unremarkable. Epiglottis is normal. Thyroid: Bilateral thyroid nodules are present, which can be further assessed on ultrasound, when clinically appropriate. Trachea: Visualized trachea is unremarkable. Lungs: Unremarkable as visualized. Lymph nodes: Unremarkable. No lymphadenopathy. Vasculature: Moderate atherosclerotic disease of the thoracic aorta. Bones/joints: Unremarkable. No acute fracture. Soft tissues: Unremarkable. No significant soft tissue swelling. IMPRESSION: No acute process. No evidence of neck mass or abscess. Dictated and Authenticated by: Rachel Davila MD. Ordering:NELSY Lutz MD
[2024-08-11 21:42] LABS: Magnesium 1.9 mg/dL (1.8-2.4); NT-proBNP 379 pg/mL (<300)
[2024-08-11 21:44] LABS: Troponin I 150 ng/L (<or=51)
--- NOTE | 2024-08-11 22:08 | W.PM.HP.N ---
Date of service: 08/11/24 Time of Service: 22:08 Assessment and Plan Assessment and plan (1) Swelling of left parotid gland: Start date: 08/11/24 Status: Acute Assessment and plan: This is an 84-year-old lady who had sudden onset of left jaw sharp pain and swelling the afternoon prior to presentation to the ED. She did have a very firm and swollen area at the angle of her jaw and underneath the angle with the swelling slowly decreasing but the pain persisted especially in the submandibular area. Exam does reveal erythema and increased warmth with some tenderness and swelling persisting especially in the submandibular area but it feels more like the parotid gland than lymphatic tissue. She will be treated for possible parotitis with ultrasound of the neck to follow-up. She also has some nodules on her thyroid which could be evaluated. She is status post thymectomy in the past. She does not have ongoing myasthenia gravis which occurred after that surgery. It is possible she has a stone which was obstructing and then released with a sudden change in size of the mass. Eventually she should be seen by ENT. Patient is a full code. (2) Elevated troponin level not due myocardial infarction: Status: Acute Assessment and plan: Troponin was checked and elevated but trending downward with no history to suggest ischemic cardiac disease. Is unclear whether troponin was checked in the first place except for the patient having extreme hypertension. These will be trended. They most likely are secondary to her hypertensive state and stress with pain in her jaw. Telemetry overnight. (3) Hypertension: Assessment and plan: Patient has improved with her pain lessened. Continue her usual outpatient medical therapy. (4) Urinary incontinence, mixed: Status: Chronic Assessment and plan: Continue outpatient treatment with mirabegron. History of Present Illness History of Present Illness Chief Complaint: Left facial swelling and pain Narrative: This is an 84-year-old female patient who has chronic hypertension not well-controlled reporting to the ED with left facial swelling which was larger earlier in the day and then seemed to decrease in size but was tender, red and warm to touch in the area of the mandibular arch. This persisted when she sat down to eat her evening meal and called her [id number] to check her. They were concerned for possible stroke with her facial changes which appear to be drooping. She had no nausea vomiting and no problems chewing. She denied fever or chills. She had had a trip and fall 2 days prior to this presentation but no injury to her head having fallen onto her buttocks and back. She is obese and sometimes unsteady status post bilateral knee replacement. She has also had night sweats over this last year which has been evaluated by her PCP with negative evaluation. She has never had facial swelling like this in the past and has no known parotid stones. Blood pressure was markedly elevated in the ED and additional check of troponin which was elevated but was trending down. Patient had a non-ischemic EKG and has not had no chest pain shortness of breath. Because her blood pressure remains slightly elevated and troponins being trended, ED physician thought the patient should be watched overnight to make sure troponins continue to trend downward and to monitor uncontrolled blood pressure. CT of her neck was essentially normal but after I examined the patient her left jaw area with the parotid would lie was warm to touch and very tender though no palpable fluctuance. Even though CT was negative I was concerned for parotitis especially since she was diabetic and initiated Unasyn IV. Patient is a full code. Review of Systems Narrative: 13 point review of systems otherwise unrevealing or stable. PFSH All Active Problems (Updated 08/11/24 @ 22:21 by Paulino Calderón) Elevated troponin level not due myocardial infarction (Acute) Swelling of left parotid gland (Acute) Hot flashes not due to menopause (Acute) Peroneal tendonitis of right lower leg (Acute) Family history of colon cancer (Acute) Trochanteric bursitis of right hip (Acute) DEPO MEDROL: 08/30/2023 Essential hypertension (Acute) Fracture of base of fifth metatarsal bone of right foot (Acute 02/07/22) Peroneal tendonitis of right lower extremity (Acute) COVID (Acute 05/2022) Dysfunction of right eustachian tube (Acute) Impacted cerumen of both ears (Acute) Osteoarthritis of carpometacarpal (CMC) joint of left thumb (Acute) Trigger finger, left ring finger (Acute) Injected: 10/19/2019 Chest pain (Acute) MCINTOSH (dyspnea on exertion) (Acute) Blurred vision, left eye (Acute) Cough (Acute) Insomnia (Acute) Osteopenia (Acute 06/29/13) Actinic keratoses (Acute) Seborrheic keratoses (Chronic) Neoplasm of unspecified behavior of bone, soft tissue, and skin (Acute) Left cheondoism ENT/Camille Urinary incontinence, mixed (Chronic 01/29/17) 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 mostly on right side b. 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 [place] ([place]yfive) years ago Osteoarthritis of right knee (Acute 01/05/15) Medical History (Updated 08/11/24 @ 22:21 by Paulino Calderón) Hypertension Fracture of metatarsal of right foot, closed History of squamous cell carcinoma Wrist pain, left (12/06/15) Diffuse cystic mastopathy (01/17/12) Surgical History (Updated 03/21/22 @ 15:07 by Tameka Ernandez RN, RN) Foot fracture, left (Unknown) 01/2022 5th metatarsal Hx of tonsillectomy (Unknown) History of hysterectomy (Unknown) Hx of cholecystectomy (Unknown) Hx of appendectomy (Unknown) History of total knee arthroplasty (06/23/14) Left Shave excision rgt forehead (02/20/16) Pathology: -Squamous cell carcinoma in situ -Extensive follicular involvement present -Squamous cell carcinoma in situ present at peripheral and deep tissue edges. R total knee arthroplasty (01/05/15) Arun H/O surgical procedure a. Thymectomy b. Appendectomy c. Open cholecystectomy d. Tonsillectomy e. Hysterectomy f. Repair of a Lisfrank fx, left foot g. Colonoscopy Family History Mother Stroke Father Heart disease heart failure Pneumonia Diabetes Sister Personal history of malignant neoplasm ovarian and colon ca Brother Personal history of malignant neoplasm prostate and colon Essential hypertension Son Diabetes Essential hypertension Social History (Updated 08/22/22 @ 13:37 by Deborah Simpson LPN) Smoking/Tobacco Use Status: Never Second Hand Exposure: Yes Smoking risk assessment performed?: Yes Alcohol Intake: never Drug use: Never Substance use type: does not use Adopted: No Household members: none Housing: apartment Number of Children: 2 number of grandchildren: 6 Communication Needs: Hard of Hearing and Corrective Lenses Do you need help understanding health information?: Rarely current occupation: retried from [employer] Pets and animals: No Do you think of yourself as: straight/heterosexual Current gender identity: female What is your relationship status?: How often do you talk on the phone with friends or family?: three or more times per week Panel score (0-1 are the most socially isolated patients): 1 What type of physical activity do you participate in: none Duration: 15-30 minutes/day Frequency: daily Seatbelt use: always Drive intox or ride w/intox 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 Has a male friend Meds Allergies and Home Medications Allergies Allergy/AdvReac Type Severity Reaction Status Date / Time oxybutynin AdvReac dry mouth Verified 08/11/24 19:13 propoxyphene HCl (From AdvReac gi upset Verified 08/11/24 19:13 Darvon) Sulfa (Sulfonamide AdvReac gi upset Verified 08/11/24 19:13 Antibiotics) Home Medications ?Medication ?Instructions ?Recorded ?Confirmed ?Type aspirin 81 mg tablet,delayed 81 mg PO DAILY #1 tab-cap 08/27/14 08/11/24 History release (Aspir-) diphenhydramine HCl 25 mg tablet 50 mg PO HS 04/06/20 08/11/24 History losartan 50 mg-hydrochlorothiazide 1 tab PO DAILY #90 tabs 06/03/24 08/11/24 Rx 12.5 mg tablet mirabegron 50 mg tablet,extended 50 mg PO DAILY #90 tab-caps 06/10/24 08/11/24 Rx release 24 hr (Myrbetriq) Exam Narrative Exam Narrative: General: Patient is appropriate for age and in no acute distress. She is alert and oriented x 3. HEENT: Normocephalic, facial swelling over the left mandibular angle and from the ear but more over the jaw with tenderness especially over the angle of the jaw and in the area of the parotid gland with increased warmth to touch and erythema but no fluctuance. There is no indurated area. Eyes with pupils equal and reactive light symmetrically, extraocular movement intact and sclera anicteric. Oropharynx with moist mucosa. Fair dentition. Neck: Supple without JVD. No grossly lower thyroid. Back: Kyphotic without CVA tenderness. Lungs: Clear to auscultation percussion with no focalizing rales or rhonchi. No expiratory wheeze. Duration. Breast: Exam deferred. Heart: Regular rate and rhythm with no murmurs or gallops appreciated. Abdomen: Obese contour, soft and nontender to palpation with no palpable hepatosplenomegaly. Bowel sounds positive in all quadrants. Due to/rectal: Exam deferred. Extremities: Without clubbing, cyanosis or pitting edema with patient having obesity with nonpitting edema both lower extremities. Well-healed scars over both knees. Fair capillary refill. Skin: Normal color, warm and dry. Actinic changes over sun exposed areas. Neuro: Cranial nerves II through XII gross intact, no focal motor deficits. No tremor. Psych: Normal affect and mood. No abnormal thought processes. Remote and recent memory intact. Results Imaging Imaging Studies: Exam: CT Neck With Contrast Exam date and time: 08/11/2024 7:52 PM Age: 84 years old Clinical indication: Other: Left neck/jaw swelling TECHNIQUE: Imaging protocol: Computed tomography of the neck with contrast. Contrast material: OMNIPAQUE 350; Contrast volume: 100 ml; Contrast route: INTRAVENOUS (IV); COMPARISON: US CAROTID 09/29/2019 3:06 PM FINDINGS: Paranasal sinuses: Complete opacification of the right maxillary sinus. Salivary glands: Normal. Glands are normal in size. Pharynx: Unremarkable. No significant tonsillar enlargement. Prevertebral and retropharyngeal spaces: Unremarkable. Larynx: Unremarkable. Epiglottis is normal. Thyroid: Bilateral thyroid nodules are present, which can be further assessed on ultrasound, when clinically appropriate. Trachea: Visualized trachea is unremarkable. Lungs: Unremarkable as visualized. Lymph nodes: Unremarkable. No lymphadenopathy. Vasculature: Moderate atherosclerotic disease of the thoracic aorta. Bones/joints: Unremarkable. No acute fracture. Soft tissues: Unremarkable. No significant soft tissue swelling. IMPRESSION: No acute process. No evidence of neck mass or abscess. Labs 08/11/24 19:05 08/11/24 19:05 Labs: Laboratory Results - last 24 hr 08/11/24 08/11/24 19:05 21:04 WBC 7.21 RBC 4.24 Hgb 12.8 Hct 39.5 MCV 93 MCH 30.2 MCHC 32.4 RDW 12.3 Plt Count 264 MPV 10.2 Immature Gran % 0.3 Neutrophils % 68.9 Lymphocytes % 18.7 Monocytes % 9.2 Eosinophils % 2.2 Basophils % 0.7 Nucleated RBC % 0.0 Absolute Neutrophils 4.97 Absolute Lymphocytes 1.35 Absolute Monocytes 0.66 Absolute Eosinophils 0.16 Absolute Basophils 0.05 Sodium 141 Potassium 3.7 Chloride 106 Carbon Dioxide 30.3 Anion Gap 4.7 BUN 18 Creatinine 0.9 Est GFR (CKD-EPI 2020) 63.43 Glucose 127 H Calcium 9.3 Magnesium 1.9 Total Bilirubin 0.40 AST 21 ALT 15 Alkaline Phosphatase 87 Troponin I 162 H* 150 H* NT-Pro-B Natriuret Pep 379 H Total Protein 7.2 Albumin 3.5 Last Vital Signs Temp 36.8 C 08/11/24 18:43 Pulse 63 08/11/24 21:47 Resp 18 08/11/24 21:47 BP 156/109 H 08/11/24 21:47 Pulse Ox 98 08/11/24 21:47 Time Spent Time spent with Patient: >75 minutes Time was spent: preparing to see the patient(eg.review tests), obtaining and/or reviewing separately otained hiistory, ordering medications,tests, procedures, indepentently interpreting results, counseling the patient and care coordination
[2024-08-11 22:50] LABS: Source Nasal/Nares
[2024-08-11 23:07] LABS: Troponin I 147 ng/L (<or=51)
[2024-08-11 23:10] LABS: TSH (W/Ref FT4) 2.29 uIU/mL (0.36-3.74)
[2024-08-11 23:39] LABS: COVID-19 PCR Negative (Negative)
[2024-08-12] VITALS: BP 139/61; PULSE 71; RESP 16; TEMP 36.4; O2SAT 99
[2024-08-12 02:24] VITALS: BP 129/56; PULSE 66; RESP 16; TEMP 36.7; O2SAT 98
[2024-08-12] MEDS: Acetaminophen 325 MG TAB PO (02:34)
[2024-08-12] MEDS: AMPICILLIN/SULBACTAM 3 GM in Normal Saline 100 ML IVPB ×3 (02:34→14:06)
--- NOTE | 2024-08-12 04:23 | W.PC.ACHO ---
Registration Status: Primary Language: Preferred Language: ED Information & Data Chief Complaint GenMedical 08/11/24 19:46 Triage Note PT noticed swelling/ 08/11/24 18:43 tenderness in the L side of her neck under her jaw around supper today. Fell yesterday w/ no pain complaint immediately after fall. Extremely hypertensive on triage. Medical / Surgical History (Last Updated 08/11/24 @ 22:20 by Paulino Calderón) Hypertension Fracture of metatarsal of right foot, closed History of squamous cell carcinoma Wrist pain, left (12/06/15) Diffuse cystic mastopathy (01/17/12) (Last Updated 03/21/22 @ 15:07 by Tameka Ernandez RN, RN) Foot fracture, left (Unknown) Hx of tonsillectomy (Unknown) History of hysterectomy (Unknown) Hx of cholecystectomy (Unknown) Hx of appendectomy (Unknown) History of total knee arthroplasty (06/23/14) Shave excision rgt forehead (02/20/16) R total knee arthroplasty (01/05/15) H/O surgical procedure Most Recent Vital Signs Temperature 36.7 C 08/12/24 02:24 Temperature Source Tympanic 08/12/24 02:24 Pulse 66 08/12/24 02:24 Pulse Rhythm Regular 08/12/24 00:00 Respiratory Rate 16 08/12/24 02:24 Respiratory Effort Normal, Non-Labored 08/12/24 00:00 Respiratory Depth Normal 08/12/24 00:00 Respiratory Pattern Irregular 08/12/24 00:00 Blood Pressure 129/56 L 08/12/24 02:24 Blood Pressure Position Sitting 08/11/24 18:43 Pulse Oximetry 98 08/12/24 02:24 Oxygen Delivery Method Room Air 08/12/24 02:24 Oxygen Flow Rate 0 08/12/24 02:24 Pain Level 0 08/12/24 02:24 Allergies oxybutynin Adverse Reaction (Verified 08/11/24 19:13) dry mouth propoxyphene HCl (From Darvon) Adverse Reaction (Verified 08/11/24 19:13) gi upset Sulfa (Sulfonamide Antibiotics) Adverse Reaction (Verified 08/11/24 19:13) gi upset Active Medications Generic Name Dose Route Start Last Admin Trade Name Freq PRN Reason Stop Dose Admin Acetaminophen 0 mg 08/11/24 22:43 08/12/24 02:34 Acetaminophen 325 Mg Tab PO 325 mg Q4H PRN PRN Administration Ampicillin Sodium/Sulbactam 100 mls @ 200 mls/hr 08/12/24 02:00 08/12/24 03:10 Sodium 3 gm/ Sodium Chloride IVPB Infused Q6H KISHAN Infusion IV IV Catheter Type [Left Forearm Saline Lock ] IV Catheter Gauge [Left 20 Forearm] Diet Orders Category Date Time Status Heart Healthy Eating [DIET] Nutrition 08/12/24 Breakfast Active Diagnostics 08/12/24 08/11/24 08/11/24 Range/Units 05:35 22:46 22:30 WBC Pending (4.4-10.8) 10^3/uL RBC Pending (3.93-5.22) 10^6/uL Hgb Pending (11.2-15.7) g/dL Hct Pending (36.0-46.0) % MCV Pending (80-95) fL MCH Pending (27.0-33.0) pg MCHC Pending (32.0-36.0) % RDW Pending (11.7-14.6) % Plt Count Pending (130-400) 10^3/uL MPV Pending (8.0-11.0) fL Immature Gran % % Neutrophils % % Lymphocytes % % Monocytes % % Eosinophils % % Basophils % % Nucleated RBC % (0.0-0.3) % Absolute Neutrophils (1.2-6.7) 10^3/uL Absolute Lymphocytes (1.2-3.4) 10^3/uL Absolute Monocytes (0.1-0.8) 10^3/uL Absolute Eosinophils (0.0-0.7) 10^3/uL Absolute Basophils (0.0-0.2) 10^3/uL Sodium Pending (136-145) mmol/L Potassium Pending (3.5-5.1) mmol/L Chloride Pending (98-107) mmol/L Carbon Dioxide Pending (21.0-32.0) mmol/L Anion Gap Pending (3-11) mmol/L BUN Pending (7-18) mg/dL Creatinine Pending (0.55-1.02) mg/dL Est GFR (CKD-EPI 2020) Pending (mL/min/1.73m2) Glucose Pending (74-106) mg/dL Calcium Pending (8.5-10.1) mg/dL Magnesium Pending (1.8-2.4) mg/dL Total Bilirubin Pending (0.2-1.0) mg/dL AST Pending (15-37) U/L ALT Pending (14-59) U/L Alkaline Phosphatase Pending (46-116) U/L Troponin I Pending 147 H* (<or=51) ng/L NT-Pro-B Natriuret Pep (<300) pg/mL Total Protein Pending (6.4-8.2) g/dL Albumin Pending (3.4-5.0) g/dL TSH 2.29 (0.36-3.74) uIU/mL COVID-19 Source Nasal/Nares SARS-CoV-2 (PCR) Negative (Negative) 08/11/24 08/11/24 Range/Units 21:04 19:05 WBC 7.21 (4.4-10.8) 10^3/uL RBC 4.24 (3.93-5.22) 10^6/uL Hgb 12.8 (11.2-15.7) g/dL Hct 39.5 (36.0-46.0) % MCV 93 (80-95) fL MCH 30.2 (27.0-33.0) pg MCHC 32.4 (32.0-36.0) % RDW 12.3 (11.7-14.6) % Plt Count 264 (130-400) 10^3/uL MPV 10.2 (8.0-11.0) fL Immature Gran % 0.3 % Neutrophils % 68.9 % Lymphocytes % 18.7 % Monocytes % 9.2 % Eosinophils % 2.2 % Basophils % 0.7 % Nucleated RBC % 0.0 (0.0-0.3) % Absolute Neutrophils 4.97 (1.2-6.7) 10^3/uL Absolute Lymphocytes 1.35 (1.2-3.4) 10^3/uL Absolute Monocytes 0.66 (0.1-0.8) 10^3/uL Absolute Eosinophils 0.16 (0.0-0.7) 10^3/uL Absolute Basophils 0.05 (0.0-0.2) 10^3/uL Sodium 141 (136-145) mmol/L Potassium 3.7 (3.5-5.1) mmol/L Chloride 106 (98-107) mmol/L Carbon Dioxide 30.3 (21.0-32.0) mmol/L Anion Gap 4.7 (3-11) mmol/L BUN 18 (7-18) mg/dL Creatinine 0.9 (0.55-1.02) mg/dL Est GFR (CKD-EPI 2020) 63.43 (mL/min/1.73m2) Glucose 127 H (74-106) mg/dL Calcium 9.3 (8.5-10.1) mg/dL Magnesium 1.9 (1.8-2.4) mg/dL Total Bilirubin 0.40 (0.2-1.0) mg/dL AST 21 (15-37) U/L ALT 15 (14-59) U/L Alkaline Phosphatase 87 (46-116) U/L Troponin I 150 H* 162 H* (<or=51) ng/L NT-Pro-B Natriuret Pep 379 H (<300) pg/mL Total Protein 7.2 (6.4-8.2) g/dL Albumin 3.5 (3.4-5.0) g/dL TSH (0.36-3.74) uIU/mL COVID-19 Source SARS-CoV-2 (PCR) (Negative) Intake and Output - 24 Hour Total 08/11/24 18:40 thru 08/12/24 03:10 Intake Total 125 Output Total 150 Balance -25 Weight 103.8 kg Intake: IV 125 Output: Urine 150 Other: Urine Color Yellow Urine Appearance Clear Urine Odor Normal Comment voided in toilet Falls Risk Assessment History of Falls Previous History 08/12/24 00:00 Contributing Factors Impairments 08/12/24 00:00 Ambulatory Aids Uses ambulatory device + 08/12/24 00:00 Tubes/Lines With any additional score 08/12/24 00:00 Gait Evaluation No gait disturbance 08/12/24 00:00 Cognition No cognitive impairment 08/11/24 19:09 Fall Total Score 68 08/12/24 00:00 Level of Risk High Risk 08/12/24 00:00 Problems (Last Updated 08/11/24 @ 22:20 by Paulino Bourgeois) Elevated troponin level not due myocardial infarction (Acute) Swelling of left parotid gland (Acute) Urinary incontinence, mixed (Chronic 01/29/17) v v v v v v v v v Sending and/or Receiving Nurses: Please use comment section below to note any information pertinent to the patient hand-off not included above. Information / Comments: family rushed pt in thinking she was having a stroke due to swelling around lower left jaw. A&O, gerson lemus lump on lower left jaw is painful, the only painful area has cardiac hx fragile veins, 20g LFA neuro is - stroke scale 0 no chest pain, SOB, or nausea swallows well trops are + but down trendin @ 2100, 147 @ 2230 hr 70 bp 134/99 SPO2 100% on ra Report received from: Zackary @ [id number]
[2024-08-12 07:03] LABS: HCT 35.6 % (36.0-46.0); HGB 11.7 g/dL (11.2-15.7); MCH 30.1 pg (27.0-33.0); MCHC 32.9 % (32.0-36.0); MCV 92 fL (80-95); MPV 10.1 fL (8.0-11.0); Platelet Count 258 10^3/uL (130-400); RBC 3.89 10^6/uL (3.93-5.22); RDW 12.5 % (11.7-14.6); RDW-SD 42.2 fL; WBC 5.91 10^3/uL (4.4-10.8)
[2024-08-12 07:33] LABS: ALT 10 U/L (14-59); AST 17 U/L (15-37); Albumin 3.2 g/dL (3.4-5.0); Alkaline Phosphatase 82 U/L (46-116); Anion Gap 4.8 mmol/L (3-11); BUN 17 mg/dL (7-18); Bilirubin, Total 0.45 mg/dL (0.2-1.0); CO2 33.2 mmol/L (21.0-32.0); CREATININE 0.8 mg/dL (0.55-1.02); Calcium 9.3 mg/dL (8.5-10.1); Chloride 104 mmol/L (98-107); Estimated GFR 73.06 (mL/min/1.73m2); Glucose 97 mg/dL (74-106); Magnesium 1.9 mg/dL (1.8-2.4); Potassium 3.3 mmol/L (3.5-5.1); Sodium 142 mmol/L (136-145); Total Protein 6.4 g/dL (6.4-8.2)
[2024-08-12 07:42] LABS: Troponin I 149 ng/L (<or=51)
[2024-08-12 07:44] VITALS: BP 128/86; PULSE 68; RESP 19; TEMP 36.6; O2SAT 96
--- NOTE | 2024-08-12 08:31 | INITIAL_ITS ---
Date of service: 08/12/24 Time of Service: 08:32 Care Management Initial Assmt Initial Assessment Reason for Hospitalization: left parotid swelling Functional Status/Living Situation Patient Presentation: Kalyn was lying in bed waiting to be discharged when CM met with her. She informed CM that she feels well and is happy to be going home. Kalyn lives in an apartment above the garage on her son's property. She has 2 sons and [id number]. She also has several grandchildren and great grandchildren. Kalyn is independent at baseline and does not receive any services. She was admitted with a possible parotitis and is being discharged on oral antibiotics. Town of Residence: [facility] Resides with: Alone Significant Other/Family: Local Employment Status: Retired Instrumental Activities of Daily Living (ADLs): Independent Medications Medication Management: No Issues/Barriers identified Physical Functioning/Mobility Assistive Device: none Advance Directives Advance Directives: Do you have an Advance Directive: Y 06/15/20 12:11 AD On File at [facility]: Y 06/15/20 12:11 Date Asked AD Date Reviewed 08/11/24 08/11/24 23:56 COLST On File at [facility] COLST Date Scanned Code Status Resuscitation Status Full Code Insurance Coverage/Financial Issues Insurance: Medicare [employer] supplement Care Team Visit Care Team Role Provider Type Stella Angeles NP Primary Care Provider NURSE PRACTITIONER Nelda Alejandra MD Emergency Provider [facility] STAFF PHYSICIAN Paulino Calderón Admit Provider NON-[facility] STAFF PHYSICIAN Attending Provider Discharge Potential Discharge Needs: PCP F/U Appt Anticipated Barriers to Discharge: None Identified Patient/Family Education Needs: Review discharge instructions, discuss Ask Me Three Transportation: Private vehicle Plan: Anticipate Kalyn will be discharged home with no new services. She will follow up with her PCP and plan of care and transport with family. CM will follow and continue to assess for discharge needs. Social Determinants of Health Screening Will the Patient Participate in the Screening?: Declined to provide PFSH All Active Problems (Updated 08/12/24 @ 09:25 by Heather Salazar APRN) Discharge planning issues (Acute) On deep vein thrombosis (DVT) prophylaxis (Acute) Elevated troponin level not due myocardial infarction (Acute) Swelling of left parotid gland (Acute) Hot flashes not due to menopause (Acute) Peroneal tendonitis of right lower leg (Acute) Family history of colon cancer (Acute) Trochanteric bursitis of right hip (Acute) DEPO MEDROL: 08/30/2023 Essential hypertension (Acute) Fracture of base of fifth metatarsal bone of right foot (Acute 02/07/22) Peroneal tendonitis of right lower extremity (Acute) COVID (Acute 05/2022) Dysfunction of right eustachian tube (Acute) Impacted cerumen of both ears (Acute) Osteoarthritis of carpometacarpal (CMC) joint of left thumb (Acute) Trigger finger, left ring finger (Acute) Injected: 10/19/2019 Chest pain (Acute) MCINTOSH (dyspnea on exertion) (Acute) Blurred vision, left eye (Acute) Cough (Acute) Insomnia (Acute) Osteopenia (Acute 06/29/13) Actinic keratoses (Acute) Seborrheic keratoses (Chronic) Neoplasm of unspecified behavior of bone, soft tissue, and skin (Acute) Left hoahaoism ENT/Camille Urinary incontinence, mixed (Chronic 01/29/17) 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 mostly on right side b. 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 [place] ([place]yfive) years ago Osteoarthritis of right knee (Acute 01/05/15) Medical History (Updated 08/12/24 @ 09:25 by Heather Salazar APRN) Hypertension Fracture of metatarsal of right foot, closed History of squamous cell carcinoma Wrist pain, left (12/06/15) Diffuse cystic mastopathy (01/17/12) Surgical History (Updated 03/21/22 @ 15:07 by Tameka Ernandez RN, RN) Foot fracture, left (Unknown) 01/2022 5th metatarsal Hx of tonsillectomy (Unknown) History of hysterectomy (Unknown) Hx of cholecystectomy (Unknown) Hx of appendectomy (Unknown) History of total knee arthroplasty (06/23/14) Left Shave excision rgt forehead (02/20/16) Pathology: -Squamous cell carcinoma in situ -Extensive follicular involvement present -Squamous cell carcinoma in situ present at peripheral and deep tissue edges. R total knee arthroplasty (01/05/15) Arun H/O surgical procedure a. Thymectomy b. Appendectomy c. Open cholecystectomy d. Tonsillectomy e. Hysterectomy f. Repair of a Lisfrank fx, left foot g. Colonoscopy Family History Mother Stroke Father Heart disease heart failure Pneumonia Diabetes Sister Personal history of malignant neoplasm ovarian and colon ca Brother Personal history of malignant neoplasm prostate and colon Essential hypertension Son Diabetes Essential hypertension Social History (Updated 08/22/22 @ 13:37 by Deborah Simpson LPN) Smoking/Tobacco Use Status: Never Second Hand Exposure: Yes Smoking risk assessment performed?: Yes Alcohol Intake: never Drug use: Never Substance use type: does not use Adopted: No Household members: none Housing: apartment Number of Children: 2 number of grandchildren: 6 Communication Needs: Hard of Hearing and Corrective Lenses Do you need help understanding health information?: Rarely current occupation: retried from [employer] Pets and animals: No Do you think of yourself as: straight/heterosexual Current gender identity: female What is your relationship status?: How often do you talk on the phone with friends or family?: three or more times per week Panel score (0-1 are the most socially isolated patients): 1 What type of physical activity do you participate in: none Duration: 15-30 minutes/day Frequency: daily Seatbelt use: always Drive intox or ride w/intox hire car driver: No Working smoke detector in home: Yes Fire extinguisher in home: Yes Carbon monox detector in home: Yes Do you feel safe at home: Yes Do you feel safe in your relationship?: Yes Victim of physical abuse: No Victim of emotional abuse: No Additional Social history: lives above children - has own apartment. Has a male friend
[2024-08-12] MEDS: Normal Saline Flush 10 ML SYR IVP (08:49)
--- NOTE | 2024-08-12 09:20 | PGE_ITS ---
Date of Service Date of service: 08/12/24 Time of Service: 09:20 Assessment and Plan Assessment and plan (1) Swelling of left parotid gland: Start date: 08/11/24 Status: Acute Assessment and plan: This is an 84-year-old lady who had sudden onset of left jaw sharp pain and swelling the afternoon prior to presentation to the ED. She did have a very firm and swollen area at the angle of her jaw and underneath the angle with the swelling slowly decreasing but the pain persisted especially in the submandibular area. Exam does reveal erythema and increased warmth with some tenderness and swelling persisting especially in the submandibular area but it feels more like the parotid gland than lymphatic tissue. She will be treated for possible parotitis with ultrasound of the neck to follow-up. She also has some nodules on her thyroid which could be evaluated. She is status post thymectomy in the past. She does not have ongoing myasthenia gravis which occurred after that surgery. It is possible she has a stone which was obstructing and then released with a sudden change in size of the mass. Eventually she should be seen by ENT. Patient is a full code. (2) Elevated troponin level not due myocardial infarction: Status: Acute Assessment and plan: Troponin was checked and elevated but trending downward with no history to suggest ischemic cardiac disease. Is unclear whether troponin was checked in t he first place except for the patient having extreme hypertension. These will be trended. They most likely are secondary to her hypertensive state and stress with pain in her jaw. Telemetry overnight. (3) Hypertension: Assessment and plan: Patient has improved with her pain lessened. Continue her usual outpatient medical therapy. (4) Urinary incontinence, mixed: Status: Chronic Assessment and plan: Continue outpatient treatment with mirabegron. (5) On deep vein thrombosis (DVT) prophylaxis: Status: Acute (6) Discharge planning issues: Status: Acute Exam Narrative Exam Narrative: Constitutional The patient is sitting in chair/ lying in bed comfortable and cooperative during the interview. The patient is well groomed without acute distress and has average body habitus/is obese/ is thin. HENMT: Head is atraumatic, normocephalic, no lymphadenopathy. Facial structures with normal appearance Eyes: Well aligned, intact ROM Neck: Normal ROM, no meningeal signs Neuro:alert and oriented to self, person, place time and situation. No neurological focal deficit, PERRLA Chest:Chest is symmetrical and normal appearance Resp: Normal respiratory pattern, speaks in full sentences, unlabored breathing, clear lung bilaterally Cardio: regular rhythm, S1, S2, no murmur, capillary refill<3 sec., bilateral radial and dorsalis pedis pulses are positive, palpable GI: Abdomen is not distended, soft and non tender, bowel sounds are present : Negative Costovertebral angle tenderness, no bladder distension Back/spine/Pelvis: No back tenderness, normal alignment Integumentary: No skin lesions or rash Extremities: strength 5/5 to bilateral lower and upper extremities Psych: RASS 0, congruent mood and normal affect. Objective Last Vital Signs Temp 36.6 C 08/12/24 07:44 Pulse 68 08/12/24 07:44 Resp 19 08/12/24 07:44 BP 128/86 08/12/24 07:44 Pulse Ox 96 08/12/24 07:44 Laboratory Results - last 24 hr 08/11/24 08/11/24 08/11/24 19:05 21:04 22:30 WBC 7.21 RBC 4.24 Hgb 12.8 Hct 39.5 MCV 93 MCH 30.2 MCHC 32.4 RDW 12.3 Plt Count 264 MPV 10.2 Immature Gran % 0.3 Neutrophils % 68.9 Lymphocytes % 18.7 Monocytes % 9.2 Eosinophils % 2.2 Basophils % 0.7 Nucleated RBC % 0.0 Absolute Neutrophils 4.97 Absolute Lymphocytes 1.35 Absolute Monocytes 0.66 Absolute Eosinophils 0.16 Absolute Basophils 0.05 Sodium 141 Potassium 3.7 Chloride 106 Carbon Dioxide 30.3 Anion Gap 4.7 BUN 18 Creatinine 0.9 Est GFR (CKD-EPI 2020) 63.43 Glucose 127 H Calcium 9.3 Magnesium 1.9 Total Bilirubin 0.40 AST 21 ALT 15 Alkaline Phosphatase 87 Troponin I 162 H* 150 H* 147 H* NT-Pro-B Natriuret Pep 379 H Total Protein 7.2 Albumin 3.5 TSH 2.29 COVID-19 Source SARS-CoV-2 (PCR) 08/11/24 08/12/24 22:46 06:10 WBC 5.91 RBC 3.89 L Hgb 11.7 Hct 35.6 L MCV 92 MCH 30.1 MCHC 32.9 RDW 12.5 Plt Count 258 MPV 10.1 Immature Gran % Neutrophils % Lymphocytes % Monocytes % Eosinophils % Basophils % Nucleated RBC % Absolute Neutrophils Absolute Lymphocytes Absolute Monocytes Absolute Eosinophils Absolute Basophils Sodium 142 Potassium 3.3 L Chloride 104 Carbon Dioxide 33.2 H Anion Gap 4.8 BUN 17 Creatinine 0.8 Est GFR (CKD-EPI 2020) 73.06 Glucose 97 Calcium 9.3 Magnesium 1.9 Total Bilirubin 0.45 AST 17 ALT 10 L Alkaline Phosphatase 82 Troponin I 149 H* NT-Pro-B Natriuret Pep Total Protein 6.4 Albumin 3.2 L TSH COVID-19 Source Nasal/Nares SARS-CoV-2 (PCR) Negative PAWSS Have you Been Recently Intoxicated or Drunk Within the Last 30 days?: No Have you Ever Experienced Previous Episodes of Alcohol Withdrawal?: No Have you ever Experienced Withdrawal Seizures?: No Have you ever Experienced Delirium Tremens(DT)s?: No Have you ever undergone Alcohol Rehabilitation Treatment (i.e, inpt ot outpatient treatment programs)?: No Have you ever Experienced Blackouts?: No Have you ever Combined Alcohol with other Downers within the last 90 days?: No Have you ever Combined Alcohol with any other Substance of Abuse during the last 90 days?: No Positive Blood Alcohol level on Presentation? [PCS.BAL]: No Evidence of Increased Autonomic Activity (i.e. HR>120, tremor, sweating, agitation, nausea)?: No Result: 0
[2024-08-12] MEDS: Enoxaparin 40 MG/0.4 ML SYR SC (09:27)
[2024-08-12] MEDS: Mirabegron 50 MG TABCR PO (09:30)
--- NOTE | 2024-08-12 09:30 | DI.US_ITS ---
Exam(s) US SOFT TISSUE HEAD OR NECK EXAM: US SOFT TISSUE HEAD OR NECK CLINICAL HISTORY: Left parotid swelling, history of thymectomy. TECHNIQUE: Ultrasound was performed using standard protocol. COMPARISON: CT CT NECK W from 08/11/2024 FINDINGS: Sonographic assessment utilizing grayscale and color Doppler imaging was performed and targeted to th e area of clinical concern. The left parotid gland measures 4.9 x 1.7 x 3.9 cm. The right parotid gland measures 4.8 x 1.3 x 3.6 cm. The parotid glands are homogeneous. No evidence of a parotid mass is seen. The left submandibular gland measures 3.0 x 1.4 x 1.6 cm. The right submandibular gland measures 3.7 x 1.0 x 2.9 cm. The submandibular glands are homogeneous. No evidence of a mandibular gland mass. Sonographically benign-appearing lymph nodes are seen in the left neck. The largest measures 1.6 x 0 .3 x 0.6 cm. IMPRESSION: Unremarkable examination. No evidence of a parotid or submandibular mass or left cervical adenopathy . DATA REPOSITORY:
[2024-08-12] MEDS: Losartan 50 MG TAB PO (09:31)
[2024-08-12] MEDS: Aspirin E.C. 81 MG TABEC PO (09:31)
[2024-08-12] MEDS: hydroCHLOROthiazide 12.5 MG TAB PO (09:33)
--- NOTE | 2024-08-12 10:00 | DI.US_ITS ---
Exam(s) US THYROID EXAM: US THYROID CLINICAL HISTORY: Thyroid nodules, soft tisssue swelling. TECHNIQUE: Ultrasound thyroid performed using standard protocol. COMPARISON: CT CT NECK W from 08/11/2024 FINDINGS: ISTHMUS: 4 mm RIGHT LOBE: Size: 4.5 x 1.8 x 1.8 cm Echogenicity: Normal. Vascularity: Normal. Nodules: There are several right thyroid nodules. There are no nodule seen that would warrant follow -up or biopsy. The largest nodule visualized is 8 mm in size. It is mixed composition and isoechoic . Punctate echogenic foci are seen. The findings are consistent with a TI rads level 4 nodule. Due to its size, no follow-up or biopsy is recommended. LEFT LOBE: Size: 3.5 x 1.8 x 1.8 cm Echogenicity: Normal. Vascularity: Normal. Nodules: There is a 1.0 x 0.8 x 1.0 cm mixed composition isoechoic nodule in the midpole. There are punctate echogenic foci present. It is consistent with a TI rads 4 level nodule. Due to its size, f ollow-up is recommended. OTHER FINDINGS: None. IMPRESSION: Multinodular thyroid gland. No nodules are identified to warrant biopsy. There is a nodule on the l eft which, due to its size, follow-up is recommended. DATA REPOSITORY:
[2024-08-12] MEDS: Pilocarpine 5 MG TAB PO ×2 (11:18→15:02)
[2024-08-12] MEDS: Sodium Chloride-Nasal SPRAY-ADULT 44 ML BTL NS ×2 (11:18→12:26)
[2024-08-12 11:31] VITALS: BP 140/70; PULSE 70; RESP 17; TEMP 36.8; O2SAT 96
[2024-08-12 11:48] LABS: Troponin I 172 ng/L (<or=51)
--- NOTE | 2024-08-12 12:49 | PHA.REVIEW2 ---
Pharmacy Admission Review Admission Clinical Review Admission Pharmacy Review: Discharge planning issues (Acute) On deep vein thrombosis (DVT) prophylaxis (Acute) Elevated troponin level not due myocardial infarction (Acute) Swelling of left parotid gland (Acute) oxybutynin Adverse Reaction (Verified 08/11/24 19:13) dry mouth propoxyphene HCl (From Darvon) Adverse Reaction (Verified 08/11/24 19:13) gi upset Sulfa (Sulfonamide Antibiotics) Adverse Reaction (Verified 08/11/24 19:13) gi upset Resuscitation Status Full Code Height 5 ft 2 in Weight 102.7 kg Pharmacy Admission Review Renal Dosing Renal Dosing: BUN 17 mg/dL (7-18) 08/12/24 06:10 Creatinine 0.8 mg/dL (0.55-1.02) 08/12/24 06:10 Medications needing adjustments: Reviewed (CrCl 47.86 mL/min) List of meds needing interventions: Current medications are okay Anticoagulation Anticoagulation: Hgb 11.7 g/dL (11.2-15.7) 08/12/24 06:10 Hct 35.6 % (36.0-46.0) L 08/12/24 06:10 Plt Count 258 10^3/uL (130-400) 08/12/24 06:10 Creatinine 0.8 mg/dL (0.55-1.02) 08/12/24 06:10 DVT Prophylaxis: Intervened (changed from daily to q12h due to BMI > 40) Medications: Enoxaparin (40mg q12h) Relevant Labs Relevant Labs: Sodium 142 mmol/L (136-145) 08/12/24 06:10 Potassium 3.3 mmol/L (3.5-5.1) L 08/12/24 06:10 Chloride 104 mmol/L (98-107) 08/12/24 06:10 Magnesium 1.9 mg/dL (1.8-2.4) 08/12/24 06:10 Electrolytes, C-Reactive P, ESR: Reviewed (K 3.3) Cardiac Review Cardiac Review: Troponin I 172 ng/L (<or=51) H* 08/12/24 11:20 NT-Pro-B Natriuret Pep 379 pg/mL (<300) H 08/11/24 21:04 Troponin 172 08/12/24 1120 149 08/12/24 0610 147 08/11/24 2230 150 08/11/24 2104 162 08/11/24 1905 BP, HR, EF%: Reviewed (BP and HR WNL) List meds needing interventions: Has order for HCTZ 12.5mg daily and losartan 50mg daily QTc Review QTc: Reviewed (455 from 08/11/24) IV to PO Switch IV Medications: Reviewed (Unasyn) Home Meds Home Med List reviewed: Reviewed Current Meds Current Medication Order Review: Reviewed Pharmacy Antibiotic Review Relevant Labs: WBC 5.91 10^3/uL (4.4-10.8) 08/12/24 06:10 Temperature 36.8 C Temperature 36.6 C Temperature 36.7 C Pharmacy Antibiotic Activity: C/S review and Reviewed, no change Comments: Patient is on Unasyn, day 1, for parotitis. No cultures pending at this time.
--- NOTE | 2024-08-12 14:56 | W.PM.DS.N ---
Date of service: 08/12/24 Time of Service: 14:57 DS: Diagnosis Discharge Diagnosis (1) Swelling of left parotid gland: Status: Acute (2) Elevated troponin level not due myocardial infarction: Status: Acute (3) Hypertension: (4) Urinary incontinence, mixed: Status: Chronic (5) On deep vein thrombosis (DVT) prophylaxis: Status: Acute (6) Discharge planning issues: Status: Acute Discharge Plan Disposition Patient Disposition: Home Condition: Improving Discharge Details Reason For Visit: Parotid swelling on the left, Elevated troponins, Admit Date/Time: 08/11/24 22:29 Admit Provider: Paulino Calderón Attending Provider: Paulino Calderón Primary Care Provider: Stella Angeles Hospital Course Hospital Course: This 83 years old female patient with past medical history of hypertension, obesity, asthma, diabetes presented to the ED at [facility] on 08/11/2024 for left-sided neck/jaw swelling and tenderness. The patient denied fever, difficulty swallowing. Was able to protect her airways and add no meningismus. Reported in the ED that she had a recent fall falling on her back buttock but open correction mentioned falling on the face. No report of dizziness, syncope, shortness of breath, chest pain gastrointestinal or genitourinary symptoms. Workup in the ED was significant for a neck CT showing mild infiltration soft tissues around the left parotid gland and submandibular region which is also seen in the left parotid gland without fluid collection suggestive of abscess. Abnormal troponins in the 160s to 140's x 2 without EKG changes indicative of ST segment or T wave abnormalities. Later troponin remained around the same range and the patient had no symptoms of ACS. Upper respiratory viral panel was negative. CBC and chemistries were unremarkable. The hospitalist was consulted and patient admitted to the medical surgical floor for evaluation and management of parotitis in the setting of diabetes history for IV antibiotics, further imaging and ENT consultation. Treatment was initiated with Unasyn IV. During the stay, IV Unasyn treatment continued with improvement of swelling and initial erythema. Upon discussion with ENT Dr. Abarca, recommendations were made for outpatient follow-up with Augmentin to complete a 10-day course of treatment. Discussion included multiple thyroid nodules/cysts with a larger 1 on the left side that would benefit from outpatient follow-up as well as most likely chronic right maxillary sinus sinusitis for which the oral antibiotics above-mentioned would be also adequate. Recommendation also made for sialogogues to assist with saliva production and parotid massages. The patient will be discharged home today with oral antibiotic, short course of probiotics and saline nasal spray with follow-up with her PCP within 7 days of discharge as well as a referral to Dr. Abarca's office. Discussed with Dr. Camara Home Meds and New Rx's Prescriptions: New amoxicillin-pot clavulanate 875-125 mg tablet 1 tab PO Q12H Qty: 20 0RF Bio-K plus 50 billion cell capsule,delayed release(DR/EC) 1 cap PO DAILY Qty: 10 0RF Rx Instructions: Take 3 hours apart of antibiotics [place] Nasal 0.65 % Aerosol,[place] 2 spray NS QID Qty: 44 1RF acetaminophen 325 mg capsule 650 mg PO Q6H PRN PRNQty: 40 0RF Continued mirabegron [Myrbetriq] 50 mg tablet extended release 24 hr 50 mg PO DAILY Qty: 90 4RF losartan-hydrochlorothiazide 50-12.5 mg tablet 1 tab PO DAILY Qty: 90 3RF aspirin [Aspir-81] 81 MG tablet,delayed release (DR/EC) 81 mg PO DAILY Qty: 1 diphenhydramine HCl 25 mg Tablet 50 mg PO HS Discharge Instructions Stand Alone Forms: Nursing Discharge Form Referrals: Radu Abarca MD [ [facility] STAFF PHYSICIAN] - 08/24/24 11:00 am Stella Angeles NP [Primary Care Provider] - 08/25/24 10:45 am Activity:: Activity as Tolerated Equipment/Supplies:: No Equipment Needed Diet:: heart healthy diabetic Discharge Orders Discharge Orders: Discharge Order (Routine); Ordered 08/12/24 Ordered By: Heather Salazar DS: Summary Time Spent with Patient providing and/or coordinating discharge services: Greater than 30 minutes Status at Discharge Functional status at discharge: independent ambulation Overall status at discharge: patient is progressing back to baseline Mental Status: mental status grossly normal Speech and Movement: speech and movement normal Mood: congruent mood Affect: normal affect Quality:SDOH Health Related Social Needs: No Data to Display Exam Narrative Exam Narrative: Constitutional Elderly patient appearing of stated age, with obese body habitus, sitting in chair without acute distress HENMT: Head is atraumatic, normocephalic, no lymphadenopathy. Slight swelling of lower left mandible without erythema. Oral mucosa integrity is intact, no drainage observed in left parotid area Eyes: Well aligned, intact ROM Neck: Normal ROM, no meningeal signs Neuro:alert and oriented to self, person, place,time and situation. No neurological focal deficit Chest:Chest is symmetrical and normal appearance Resp: Normal respiratory pattern, speaks in full sentences, unlabored breathing, clear lung bilaterally Cardio: regular rhythm, S1, S2, murmur, capillary refill<3 sec., bilateral radial and dorsalis pedis pulses are positive, palpable GI: Abdomen is not distended, soft and non tender, bowel sounds are present : Negative Costovertebral angle tenderness, Back/spine/Pelvis: No back tenderness, normal alignment Integumentary: No skin lesions or rash on exposed skin Extremities: strength 5/5 to bilateral lower and upper extremities Psych: RASS 0, congruent mood and normal affect. Psych Mental Status: mental status grossly normal Speech and Movement: speech and movement normal Mood: congruent mood Affect: normal affect DS: Data Vitals/I&O Vitals and I&O: Vital Signs Temperature 36.8 C 08/12/24 11:31 Temperature Source Tympanic 08/12/24 11:31 Pulse 70 08/12/24 11:31 Pulse Rhythm Regular 08/12/24 00:00 Respiratory Rate 17 08/12/24 11:31 Respiratory Effort Normal, Non-Labored 08/12/24 00:00 Respiratory Depth Normal 08/12/24 00:00 Respiratory Pattern Irregular 08/12/24 00:00 Blood Pressure 140/70 08/12/24 11:31 Blood Pressure Position Sitting 08/11/24 18:43 Pulse Oximetry 96 08/12/24 11:31 Oxygen Delivery Method Room Air 08/12/24 11:31 Oxygen Flow Rate 0 08/12/24 11:31 Pain Level 5 08/12/24 07:44 Intake & Output 08/11/24 08/12/24 08/12/24 23:59 11:59 23:59 Intake Total 455 / 935 480 / 935 Output Total 150 / 150 Balance 305 / 785 480 / 785 Weight 102.058 kg 102.7 kg Intake: IV 215 / 215 Oral 240 / 720 480 / 720 Output: Urine 150 / 150 Other: Urine Color Yellow Urine Appearance Clear Urine Odor Normal Comment per patient she voided in the toilet Stool Size Moderate Stool Characteristics Hard Data Completed and Pending Labs on day of discharge: Labs from last 24 hours 08/12/24 08/12/24 08/11/24 11:20 06:10 22:46 WBC 5.91 RBC 3.89 L Hgb 11.7 Hct 35.6 L MCV 92 MCH 30.1 MCHC 32.9 RDW 12.5 Plt Count 258 MPV 10.1 Immature Gran % Neutrophils % Lymphocytes % Monocytes % Eosinophils % Basophils % Nucleated RBC % Absolute Neutrophils Absolute Lymphocytes Absolute Monocytes Absolute Eosinophils Absolute Basophils Sodium 142 Potassium 3.3 L Chloride 104 Carbon Dioxide 33.2 H Anion Gap 4.8 BUN 17 Creatinine 0.8 Est GFR (CKD-EPI 2020) 73.06 Glucose 97 Calcium 9.3 Magnesium 1.9 Total Bilirubin 0.45 AST 17 ALT 10 L Alkaline Phosphatase 82 Troponin I 172 H* 149 H* NT-Pro-B Natriuret Pep Total Protein 6.4 Albumin 3.2 L TSH COVID-19 Source Nasal/Nares SARS-CoV-2 (PCR) Negative 08/11/24 08/11/24 08/11/24 22:30 21:04 19:05 WBC 7.21 RBC 4.24 Hgb 12.8 Hct 39.5 MCV 93 MCH 30.2 MCHC 32.4 RDW 12.3 Plt Count 264 MPV 10.2 Immature Gran % 0.3 Neutrophils % 68.9 Lymphocytes % 18.7 Monocytes % 9.2 Eosinophils % 2.2 Basophils % 0.7 Nucleated RBC % 0.0 Absolute Neutrophils 4.97 Absolute Lymphocytes 1.35 Absolute Monocytes 0.66 Absolute Eosinophils 0.16 Absolute Basophils 0.05 Sodium 141 Potassium 3.7 Chloride 106 Carbon Dioxide 30.3 Anion Gap 4.7 BUN 18 Creatinine 0.9 Est GFR (CKD-EPI 2020) 63.43 Glucose 127 H Calcium 9.3 Magnesium 1.9 Total Bilirubin 0.40 AST 21 ALT 15 Alkaline Phosphatase 87 Troponin I 147 H* 150 H* 162 H* NT-Pro-B Natriuret Pep 379 H Total Protein 7.2 Albumin 3.5 TSH 2.29 COVID-19 Source SARS-CoV-2 (PCR) PFSH All Active Problems (Updated 08/12/24 @ 09:25 by Heather Salazar APRN) Discharge planning issues (Acute) On deep vein thrombosis (DVT) prophylaxis (Acute) Elevated troponin level not due myocardial infarction (Acute) Swelling of left parotid gland (Acute) Hot flashes not due to menopause (Acute) Peroneal tendonitis of right lower leg (Acute) Family history of colon cancer (Acute) Trochanteric bursitis of right hip (Acute) DEPO MEDROL: 08/30/2023 Essential hypertension (Acute) Fracture of base of fifth metatarsal bone of right foot (Acute 02/07/22) Peroneal tendonitis of right lower extremity (Acute) COVID (Acute 05/2022) Dysfunction of right eustachian tube (Acute) Impacted cerumen of both ears (Acute) Osteoarthritis of carpometacarpal (CMC) joint of left thumb (Acute) Trigger finger, left ring finger (Acute) Injected: 10/19/2019 Chest pain (Acute) MCINTOSH (dyspnea on exertion) (Acute) Blurred vision, left eye (Acute) Cough (Acute) Insomnia (Acute) Osteopenia (Acute 06/29/13) Actinic keratoses (Acute) Seborrheic keratoses (Chronic) Neoplasm of unspecified behavior of bone, soft tissue, and skin (Acute) Left judaism ENT/Camille Urinary incontinence, mixed (Chronic 01/29/17) 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 mostly on right side b. 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 [place] ([place]yfive) years ago Osteoarthritis of right knee (Acute 01/05/15) Medical History (Updated 08/12/24 @ 09:25 by Heather Salazar APRN) Hypertension Fracture of metatarsal of right foot, closed History of squamous cell carcinoma Wrist pain, left (12/06/15) Diffuse cystic mastopathy (01/17/12) Surgical History (Updated 03/21/22 @ 15:07 by Tameka Ernandez RN, RN) Foot fracture, left (Unknown) 01/2022 5th metatarsal Hx of tonsillectomy (Unknown) History of hysterectomy (Unknown) Hx of cholecystectomy (Unknown) Hx of appendectomy (Unknown) History of total knee arthroplasty (06/23/14) Left Shave excision rgt forehead (02/20/16) Pathology: -Squamous cell carcinoma in situ -Extensive follicular involvement present -Squamous cell carcinoma in situ present at peripheral and deep tissue edges. R total knee arthroplasty (01/05/15) Arun H/O surgical procedure a. Thymectomy b. Appendectomy c. Open cholecystectomy d. Tonsillectomy e. Hysterectomy f. Repair of a Lisfrank fx, left foot g. Colonoscopy Family History Mother Stroke Father Heart disease heart failure Pneumonia Diabetes Sister Personal history of malignant neoplasm ovarian and colon ca Brother Personal history of malignant neoplasm prostate and colon Essential hypertension Son Diabetes Essential hypertension Social History (Updated 08/22/22 @ 13:37 by Deborah Simpson LPN) Smoking/Tobacco Use Status: Never Second Hand Exposure: Yes Smoking risk assessment performed?: Yes Alcohol Intake: never Drug use: Never Substance use type: does not use Adopted: No Household members: none Housing: apartment Number of Children: 2 number of grandchildren: 6 Communication Needs: Hard of Hearing and Corrective Lenses Do you need help understanding health information?: Rarely current occupation: retried from [employer] Pets and animals: No Do you think of yourself as: straight/heterosexual Current gender identity: female What is your relationship status?: How often do you talk on the phone with friends or family?: three or more times per week Panel score (0-1 are the most socially isolated patients): 1 What type of physical activity do you participate in: none Duration: 15-30 minutes/day Frequency: daily Seatbelt use: always Drive intox or ride w/intox skidder driver: No Working smoke detector in home: Yes Fire extinguisher in home: Yes Carbon monox detector in home: Yes Do you feel safe at home: Yes Do you feel safe in your relationship?: Yes Victim of physical abuse: No Victim of emotional abuse: No Additional Social history: lives above children - has own apartment. Has a male friend Time Spent with Patient Time Spent with Patient: 70-84 minutes4 Time was spent: preparing to see the patient(eg.review tests), obtaining and/or reviewing separately otained hiistory, ordering medications,tests, procedures, referring, communicating with other health care management assistant, indepentently interpreting results, counseling the patient and care coordination
[2024-08-12 15:15] VITALS: BP 136/72; PULSE 66; RESP 18; TEMP 36.5; O2SAT 97
--- NOTE | 2024-08-12 15:44 | PDOC.CMDIS ---
Date of service: 08/12/24 Time of Service: 15:44 LACE Index Scoring Tool Questions: Length of Stay (in days): 1 Was the patient admitted via the E.D.?: Yes Comorbidities: Chronic Pulmonary Disease and Any Tumor E.D. Visits: 1 Answers: Total Score: 10 Risk of Readmission: High Risk Care Management Discharge Plan Reason for Hospitalization: possible parotitis Discharge Plan: Kalyn will be discharged home with no new services. She will follow up with her PCP an plan of care and transport with family. Patient/Family Education Needs: review of discharge instructions, limitations, follow up plan and discuss Ask Me Three [facility] Health Related Social Needs: No Data to Display
--- NOTE | 2024-08-12 15:50 | CHAPLAIN ---
Kalyn was resting in bed, talking with a friend when I stopped in. She told me she's being discharged soon and her friend will be driving her home. She was pleasant and easily engaged in conversation.
[2024-08-12] MEDS: Potassium Chloride 20 MEQ TABCR 40 MEQ PO ×2 (16:11→16:13)
== END 2024-08-12 17:21 | disposition home or self-care (01) ==
LOC: ER 23:56 → MS 23:58
PROVIDERS: Nurse Practitioner Acute Care; Admitting Provider Family Medicine; Emergency Provider Student in an Organized Health Care Education/Training Program; PCP Nurse Practitioner; Visit Provider Family Medicine
DX: K11.21 Acute sialoadenitis (principal); R60.0 Localized edema; I16.1 Hypertensive emergency; I10 Essential (primary) hypertension; N39.46 Mixed incontinence; Z79.899 Other long term (current) drug therapy; R74.8 Abnormal levels of other serum enzymes; E04.2 Nontoxic multinodular goiter; E66.9 Obesity, unspecified; Z96.653 Presence of artificial knee joint, bilateral; W19.XXXA Unspecified fall, initial encounter; R26.81 Unsteadiness on feet; Z80.0 Family history of malignant neoplasm of digestive organs; M70.61 Trochanteric bursitis, right hip; K21.9 Gastro-esophageal reflux disease without esophagitis; J45.909 Unspecified asthma, uncomplicated; G70.00 Myasthenia gravis without (acute) exacerbation
CPT/HCPCS: 00123; 36415; 70491; 76536; 80053; 85027; 87635; 93005; 96365; 96366; 96372; 99285; J1650; 83735; 83880; 84443; 84484; 85025; 93010; 99223; 99239; G0378; J0295; J3490

== ENCOUNTER 2024-08-25 10:43 | Outpatient (CLI) | payer MEDICARE, SELFPAY ==
--- NOTE | 2024-08-25 10:30 | RT.EKG_ITS ---
APPROVED REPORT Exam: Resting ECG Reason for Exam: elevated troponin Patient Location: O HR:72 bpm ECG Measurements Heart Rate 72 AXIS NH 175 P 58 QRSd 93 QRS -4 QT 432 T 25 QTc 473 Conclusion Sinus rhythm...normal P axis, V-rate 50- 99 Low voltage, precordial leads...precordial leads <1.0mV
== END 2024-08-25 10:44 | disposition home or self-care (01) ==
LOC: DI.KIM 10:44
PROVIDERS: PCP Nurse Practitioner; Visit Provider Nurse Practitioner
DX: R79.89 Other specified abnormal findings of blood chemistry (principal)
CPT/HCPCS: 93010

== ENCOUNTER 2024-08-25 15:03 | Outpatient (CLI) | payer MEDICARE, SELFPAY ==
[2024-08-25 11:33] LABS: Abs Immature Grans 0.02 10^3/uL (0.0-0.06); Absolute Basophil Count 0.04 10^3/uL (0.0-0.2); Absolute Eosinophil Count 0.14 10^3/uL (0.0-0.7); Absolute Lymphocyte Count 1.38 10^3/uL (1.2-3.4); Absolute Monocyte Count 0.63 10^3/uL (0.1-0.8); Absolute Neutrophil Count 4.52 10^3/uL (1.2-6.7); Basophils % 0.6 %; Eosinophils % 2.1 %; HCT 42.6 % (36.0-46.0); HGB 13.3 g/dL (11.2-15.7); Immature Grans % 0.3 %; Lymphocytes % 20.5 %; MCH 29.7 pg (27.0-33.0); MCHC 31.2 % (32.0-36.0); MCV 95 fL (80-95); MPV 9.8 fL (8.0-11.0); Monocytes % 9.4 %; Neutrophils % 67.1 %; Platelet Count 256 10^3/uL (130-400); RBC 4.48 10^6/uL (3.93-5.22); RDW 12.1 % (11.7-14.6); WBC 6.73 10^3/uL (4.4-10.8)
[2024-08-25 11:53] LABS: ALT 11 U/L (14-59); AST 12 U/L (15-37); Albumin 3.5 g/dL (3.4-5.0); Alkaline Phosphatase 95 U/L (46-116); Anion Gap 4.3 mmol/L (3-11); BUN 12 mg/dL (7-18); Bilirubin, Total 0.63 mg/dL (0.2-1.0); CO2 32.7 mmol/L (21.0-32.0); CREATININE 0.8 mg/dL (0.55-1.02); Calcium 9.5 mg/dL (8.5-10.1); Chloride 105 mmol/L (98-107); Estimated GFR 73.06 (mL/min/1.73m2); Glucose 100 mg/dL (74-106); Potassium 3.7 mmol/L (3.5-5.1); Sodium 142 mmol/L (136-145); Total Protein 7.2 g/dL (6.4-8.2)
[2024-08-25 11:58] LABS: Troponin I 163 ng/L (<or=51)
[2024-08-25 15:22] LABS: Lab Add On Test DONE
[2024-08-25 15:46] LABS: NT-proBNP 345 pg/mL (<300)
== END 2024-08-25 15:04 | disposition home or self-care (01) ==
LOC: LBO 15:03
PROVIDERS: PCP Nurse Practitioner; Visit Provider Nurse Practitioner
DX: J45.909 Unspecified asthma, uncomplicated (principal); E04.2 Nontoxic multinodular goiter; R79.89 Other specified abnormal findings of blood chemistry
CPT/HCPCS: 36415; 80053; 83880; 84484; 85025

== ENCOUNTER 2024-08-27 02:32 | Outpatient (CLI) | payer MEDICARE, SELFPAY ==
--- NOTE | 2024-08-27 07:30 | DI.RAD_ITS ---
Exam(s) XR CHEST 2V PA LATERAL EXAM: XR CHEST 2V PA LATERAL CLINICAL HISTORY: elevated troponin,R79.89. TECHNIQUE: 2D digital imaging was performed. COMPARISON: CR XR CHEST 2V PA LATERAL from 12/31/2023 FINDINGS: 2 views: Heart size is normal. The mediastinum is not widened. No infiltrates. There is blunting of right costophrenic angle indicating small right pleural effusio n. No obvious pleural effusion on the left side. No there is pulmonary edema. Deformity of the right 4th rib again noted. IMPRESSION: There is a small right pleural effusion. DATA REPOSITORY: RADIATION DOSE DELIVERED:
== END 2024-08-27 02:52 ==
LOC: DI 02:32
PROVIDERS: PCP Nurse Practitioner; Visit Provider Nurse Practitioner
DX: R79.89 Other specified abnormal findings of blood chemistry (principal); M18.12 Unilateral primary osteoarthritis of first carpometacarpal joint, left hand
CPT/HCPCS: 20610; 99214; J1010; 71046

== ENCOUNTER 2024-08-27 16:00 | Outpatient (CLI) | payer MEDICARE, SELFPAY ==
--- NOTE | 2024-08-27 15:15 | DI.RAD_ITS ---
Exam(s) XR FOOT RT COMPLETE EXAM: XR FOOT RT COMPLETE CLINICAL HISTORY: R 5th MT frx. TECHNIQUE: 2D digital imaging was performed. Three views. COMPARISON: CR XR FOOT MIN 3 VIEWS RIGHT (GENERIC) from 04/10/2022 FINDINGS: BONES: The previously noted 5th metatarsal fracture has healed without residual deformity. No acute fracture is present. No bony destructive lesion is seen. Prominent heel spurs. Small accessory mimi cular. JOINTS: No dislocation present. Degenerative changes noted at talonavicular joint with prominent jose livia spurring. Hammertoe deformities. SOFT TISSUE: Normal. IMPRESSION: Healing 5th metatarsal fracture without residual deformity. Degenerative changes talonavicular joint . Hammertoe deformities. DATA REPOSITORY: RADIATION DOSE DELIVERED:
--- NOTE | 2024-08-27 15:15 | DI.RAD_ITS ---
Exam(s) XR WRIST LT COMPLETE EXAM: XR WRIST LT COMPLETE CLINICAL HISTORY: eval L thumb and radial wrist pain. TECHNIQUE: 2D digital imaging was performed. Three views. COMPARISON: No exams were available for comparison FINDINGS: BONES: No acute fracture is present. No bony destructive lesion is seen. JOINTS: The carpal bones are normally aligned. There are advanced degenerative changes at the 1st c arpal metacarpal joint, with joint space narrowing and periarticular spurring. No significant degene rative changes elsewhere. SOFT TISSUE: Normal. IMPRESSION: Advanced degenerative changes at the 1st carpal metacarpal joint. DATA REPOSITORY: RADIATION DOSE DELIVERED:
== END 2024-08-27 16:01 | disposition home or self-care (01) ==
LOC: DIORS 16:01
PROVIDERS: PCP Nurse Practitioner; Visit Provider Student in an Organized Health Care Education/Training Program
DX: M18.12 Unilateral primary osteoarthritis of first carpometacarpal joint, left hand
CPT/HCPCS: 20610; 99214; J1010; 71046; 73110; 73630

== ENCOUNTER 2024-09-04 00:13 | Outpatient (CLI) | payer MEDICARE, SELFPAY ==
--- NOTE | 2024-09-04 06:30 | DI.CT_ITS ---
Exam(s) CT CHEST PE CTA EXAM: CT CHEST PE CTA CLINICAL HISTORY: elevated bnp, troponins,pleural effusion,r79.89,j90. TECHNIQUE: Imaging Protocol: Axial CT angiography was performed with multi-slice acquisition and mu lti-planar and/or 3D reconstructions. Lung Computer Aided Detection (CAD) was utilized. CONTRAST MATERIAL: Intravenous: Omnipaque 350 contrast volume:100 mL COMPARISON: CT CT NECK W from 08/11/2024 CR XR CHEST 2V PA LATERAL from 08/27/2024 FINDINGS: Tracheobronchial tree: Patent where visualized. No bronchiectasis. Pulmonary parenchyma: No consolidation or dominant measurable mass. No architectural distortion. Pulmonary Arteries: No evidence of filling defect to suggest pulmonary emboli. Mediastinum and Jeannette: No dominant adenopathy or fluid collection. The esophagus is unremarkable. Th ere is a tiny hiatal hernia. Visualized thyroid gland: Unremarkable. Pleura: No effusion or pneumothorax. Heart: The heart is not dilated. Coronary artery calcification is present. No pericardial effusion. Aorta: Thoracic aorta non-dilated. No evidence of dissection. Atherosclerotic calcification is presen t. Upper abdomen: Unremarkable. Soft tissues: Unremarkable. Bones: Within normal limits for the patient's age.Chronic deformities are seen in several right ribs. IMPRESSION: 1. No evidence of pulmonary embolism, thoracic aortic dissection or aneurysm. 2. No acute pulmonary process. RADIATION DOSE DELIVERED: 140.14mGy.cm Total DLP DATA REPOSITORY: All CT scans at this facility are submitted to the National Radiology Data Registry (NRDR) Dose Index Registry (DIR) with the [employer] (ACR). RADIATION OPTIMIZATION: All CT scans at this facility use at least one of these dose optimization te chniques: automated exposure control; mA and/or kV adjustment per patient size (includes targeted exa ms where dose is matched to clinical indication); or iterative reconstruction.
[2024-09-04] MEDS: Omnipaque 350 MG/ML 500 ML BTL-Imaging package 100 ML IJ (08:53)
[2024-09-04] MEDS: Normal Saline - Diluent 50 ML VIAL IJ (08:58)
== END 2024-09-04 00:33 ==
LOC: DI 00:13
PROVIDERS: PCP Nurse Practitioner; Visit Provider Nurse Practitioner
DX: R79.89 Other specified abnormal findings of blood chemistry (principal); J90 Pleural effusion, not elsewhere classified
CPT/HCPCS: 71275

== ENCOUNTER 2024-09-15 02:03 | Outpatient (CLI) | payer MEDICARE, SELFPAY ==
--- NOTE | 2024-09-15 08:30 | DI.US_ITS ---
APPROVED REPORT EXAM: Comprehensive 2D, Doppler, and color-flow Echocardiogram Patient Location: Out-Patient Pbx Operator: Zackary Schaffer RDCS (AE) Indications: Elevated BNP, troponin, pleural effusion, HTN Other Information Technically limited study due to body habitus. Conclusion Borderline concentric left ventricular hypertrophy. Ejection fraction is 60%. Wall motion is normal Normal right ventricular size and function Both atria are normal in size Aortic valve is sclerotic and trileaflet without stenosis or regurgitation Mitral annular calcification. Mild mitral regurgitation Ascending aorta measures 3.39 cm Wall motion Left Ventricle The left ventricle is normal size. The left ventricular systolic function is normal. The left ventric ular ejection fraction is within the normal range. Mild concentric left ventricular hypertrophy. Ther e is normal LV segmental wall motion. There is no ventricular septal defect visualized. LVEF is 60%. Right Ventricle The right ventricle is normal size. The right ventricular systolic function is normal. Atria The left atrium size is normal. The right atrium size is normal. The interatrial septum is intact wit h no evidence for an atrial septal defect. Aortic Valve The aortic valve is sclerotic. Aortic valve is probably trileaflet. There is no aortic valvular steno sis. No aortic regurgitation is present. Mitral Valve Severe mitral annular calcification. No evidence of mitral valve stenosis. Mild mitral regurgitation. Tricuspid Valve The tricuspid valve is normal in structure. There is no tricuspid valve stenosis. Trace tricuspid reg urgitation. Unable to assess PA pressure. Pulmonic Valve The pulmonary valve is normal in structure. There is no pulmonic valvular stenosis. There is no pulmo moraima valvular regurgitation. Great Vessels The aortic root is normal in size. The ascending aorta is mildly dilated. Aortic arch is normal in ca liber. IVC is normal in size and collapses >50% with inspiration. Pericardium There is no pericardial effusion. 2D Dimensions IVSD d PLAX 1.16 cm F: 0.6-1.0 Ao Root d 2.25 cm F: 2.7 - 3.3 LVPW d PLAX 1.07 cm F: 0.6 - 1.0 Ao Asc Diam d 3.39 cm F: 2.3 - 3.1 LVID d PLAX 3.75 cm F: 3.8 - 5.2 LVDs 2.59 cm F: 2.2 - 3.5 LV EF Teichholz 59.6 % FS 31.08 % LV EDV (Teich) 60.1 mL LV ESV (Teich) 24.3 mL Stroke Vol Index (Teich) 17.81 M-Mode TAPSE 1.88 cm (M/F) >1.7 Auto EF LV EDV A4C 89.5 mL LV EDV A2C 85.5 mL LV EDV BP 88.8 mL LV ESV A4C 40.2 mL LV ESV A2C 34.9 mL LV ESV BP 38.0 mL LVEF(%) A4C 55.1 % LVEF(%) A2C 59.1 % LVEF(%) BP 57.3 % LV SV A4C 49.3 ml LV SV A2C 50.6 ml LV SV BP 50.9 ml LV CO A4C 3.1 L/min LV CO A2C 3.2 L/min LV CO BP 3.2 L/min HR A4C 63.38 BPM HR A2C 62.83 BPM LV EDV Index (BP) LA Volume LA Length A4C 4.2 cm LA Length A2C 5.2 cm LA Area A4C s 9.61 cm2 LA Area A2C s 14.07 cm2 LA Vol A4C A-L 18.59 mL LA Vol A2C A-L 32.60 mL LA Vol Biplane A-L 27.2 mL LA Vol/BSA A4C A-L LA Vol/BSA A2C A-L LA Vol/BSA BP A-L 13.5 mL/m2 LA Vol A4C MOD 17.0 mL LA Vol A2C MOD 30.8 mL LA Vol BP MOD 24.8 mL RA Volume RA Area A4C 7.7 cm2 RA ESV A4C (A-L) 17.0mL RA Vol/BSA A4C A-L RA Length A4C 3.0 cm RA ESV A4C (MOD) 15.6mL LV Diastology MV E' medial 0.065 (>0.07 m/s) MV E Vmax 1.07 (0.4-1.3 m/s) MV E/E' MED 16.56 (<14) MV A Vmax 1.20 (0.4-1.3 m/s) MV E' lateral 0.074 (>0.1 m/s) E/A Ratio 0.9 MV E/E' LAT 14.37 (<14) MV E' Average 0.069 m/s MV E/E'(average) 15.39 Aortic Valve AoV Vmax 1.93 m/s LVOT Vmax 0.92 m/s AoV Peak Grad 14.9 mmHg LVOT Peak Grad 3.3 mmHg AoV Area (Vmax) 0.92 cm2 LVOT VTI 0.233 m AoV VTI 0.424 m LVOT Mean Grad 1.6 mmHg AoV Mean Chaz. 1.31 m/s LVOT SV 45.51 mL AoV Mean Grad 7.9 mmHg LVOT Diam s 1.55 cm AoV Area (VTI) 1.07 cm2 AV Regurg Peak Gr. 14.95 mmHg Velocity Ratio 0.48 Mitral Valve MV DT 330 (160-240 msec) MV Vmax TIPS 1.15 m/s MV Mean Grad 2.1 (<2mmHg) MV VTI 0.391 m Pulmonary Valve RVOT Vmax 0.63 m/s RVOT Peak Gr. 1.6 mmHg RVOT VTI 0.130 m RVOT Mean Gr. 0.9 mmHg
== END 2024-09-15 02:23 ==
LOC: DI 02:03
PROVIDERS: PCP Nurse Practitioner; Visit Provider Internal Medicine Cardiovascular Disease
DX: J90 Pleural effusion, not elsewhere classified (principal); I10 Essential (primary) hypertension; I35.8 Other nonrheumatic aortic valve disorders
CPT/HCPCS: 93306

== ENCOUNTER 2024-09-23 12:22 | Outpatient (REF) | payer MEDICARE, SELFPAY | END 2024-09-23 12:23 | disposition home or self-care (01) | LOC: LBN 12:22 | PROVIDERS: PCP Nurse Practitioner; Visit Provider Nurse Practitioner | DX: R30.0 Dysuria (principal) | CPT/HCPCS: 87086 ==

== ENCOUNTER 2025-02-12 11:20 | Outpatient (CLI) | payer MEDICARE, SELFPAY ==
--- NOTE | 2025-02-12 11:00 | DI.RAD_ITS ---
Exam(s) XR SHOULDER LT COMPLETE 2+V EXAM: XR SHOULDER LT COMPLETE 2+V CLINICAL HISTORY: LEFT SHOULDER PAIN. TECHNIQUE: 2D digital imaging was performed. Three views. COMPARISON: No exams were available for comparison FINDINGS: BONES: No acute fracture is present. No bony destructive lesion is seen. There is mild spurring at the greater tuberosity. JOINTS: No dislocation present. The glenohumeral joint space is maintained. There is mild spurring at the glenoid. No significant spurring from the AC joint. SOFT TISSUE: Normal. IMPRESSION: Mild degenerative changes of the left shoulder. DATA REPOSITORY: RADIATION DOSE DELIVERED:
== END 2025-02-12 11:21 | disposition home or self-care (01) ==
LOC: DIORS 11:21
PROVIDERS: PCP Nurse Practitioner; Referring Provider Nurse Practitioner; Visit Provider Physician Assistant
DX: M25.512 Pain in left shoulder (principal); S40.012A Contusion of left shoulder, initial encounter; M18.12 Unilateral primary osteoarthritis of first carpometacarpal joint, left hand; W08.XXXA Fall from other furniture, initial encounter
CPT/HCPCS: 99214; 73030

== ENCOUNTER → 2025-03-10 13:21 | Outpatient (BNVA) | payer MEDICARE, SELFPAY | PROVIDERS: PCP Nurse Practitioner; Referring Provider Nurse Practitioner; Visit Provider Student in an Organized Health Care Education/Training Program | DX: S46.012A Strain of muscle(s) and tendon(s) of the rotator cuff of left shoulder, initial encounter (principal); W07.XXXA Fall from chair, initial encounter | CPT/HCPCS: 99213; 20610; J1010 ==

== ENCOUNTER → 2025-06-09 11:00 | Outpatient (BNVA) | payer MEDICARE, SELFPAY | PROVIDERS: PCP Nurse Practitioner; Referring Provider Nurse Practitioner; Visit Provider Nurse Practitioner Gerontology | DX: N39.46 Mixed incontinence (principal); R05.1 Acute cough; R39.9 Unspecified symptoms and signs involving the genitourinary system | CPT/HCPCS: 99213; 51798 ==